=== PATIENT | male | born 1935 | race Caucasian/White ===

== ENCOUNTER → 2017-02-21 | Outpatient (CLI) | payer OTHER ==
[~2017-02-21] MED LIST: ADVAIR 250/501 EA INH; ASPIRIN325 MG; CIPROFLOXACIN500 MG PO; DURAGESIC 25 M25 MCG TD; GLUCOSAMINE500 M1 PO; HYDROCODONE BIT1 T11 PO; IBU800 MG PO; LASIX20 MG; LASIX40 MG PO; MINOCYCLINE HCL50 MG PO; NEURONTIN100 MG PO; PLENDIL10 MG; PRAVACHOL20 MG; SINGULAIR10 MG
== END | disposition home or self-care (01) ==
LOC: CARD 03:09
DX: I08.3 Combined rheumatic disorders of mitral, aortic and tricuspid valves (principal)

== ENCOUNTER 2017-08-16 15:30 | Emergency (ER) | payer OTHER ==
[~2017-08-16] VITALS: Ht 172.7 cm; Wt 93.0 kg
[2017-08-16] MEDS ORDERED: POTASSIUM IV (15:41)
[2017-08-16] MEDS ORDERED: ZOCOR10 MG PO (15:42)
[2017-08-16] MEDS ORDERED: COLACE100 MG PO (15:42)
[2017-08-16] MEDS ORDERED: AUGMENTIN 875875 MG PO (16:20)
== END 2017-08-16 16:52 | disposition home or self-care (01) ==
LOC: ED 15:30
DX: L02.212 Cutaneous abscess of back [any part, except buttock and flank] (principal); Z79.899 Other long term (current) drug therapy

== ENCOUNTER → 2017-08-17 | Outpatient (CLI) | payer OTHER ==
[~2017-08-17] MED LIST changes: +AUGMENTIN 875875 MG PO; +COLACE100 MG PO; +POTASSIUM IV; +ZOCOR10 MG PO
== END | disposition home or self-care (01) ==
LOC: WOUNDCARE 09:17
DX: L02.212 Cutaneous abscess of back [any part, except buttock and flank] (principal); L03.312 Cellulitis of back [any part except buttock and flank]; E78.00 Pure hypercholesterolemia, unspecified; Z87.891 Personal history of nicotine dependence

== ENCOUNTER → 2017-08-22 | Outpatient (CLI) | payer OTHER | END | disposition home or self-care (01) | LOC: WOUNDCARE 04:17 | DX: S31.000D Unspecified open wound of lower back and pelvis without penetration into retroperitoneum, subsequent encounter (principal); L02.212 Cutaneous abscess of back [any part, except buttock and flank]; L03.312 Cellulitis of back [any part except buttock and flank]; E78.00 Pure hypercholesterolemia, unspecified; Z87.891 Personal history of nicotine dependence; X58.XXXD Exposure to other specified factors, subsequent encounter ==

== ENCOUNTER → 2018-11-14 | Outpatient (CLI) | payer OTHER ==
[2018-11-14 16:22] LABS: BASO % 0.6 % (0.0-1.0); EOS # 0.1 10*3/uL (0.0-0.4); MEAN CELL VOLUME 98.5 fl (80.0-94.0); MEAN CORPUSCULAR HGB 32.8 pg (27.0-31.0); MEAN CORPUSCULAR HGB CONC 33.3 g/dl (33.0-37.0); MEAN PLATELET VOLUME 10.6 fl (9.6-12.3); MONO # 0.4 10*3/uL (0.1-1.0); MONO % 6.3 % (3.0-9.0); NEUT # 4.4 10*3/uL (2.3-7.9); NEUT % 63.8 % (47.0-73.0); PLATELET COUNT AUTOMATED 193 10*3/uL (130-400); RED BLOOD COUNT 4.57 10*6/uL (4.50-5.90); RED CELL DISTRI WIDTH 13.2 % (0-14.5)
[2018-11-14 16:47] LABS: ALBUMIN 4.5 gm/dl (3.1-4.5); ALKALINE PHOSPHATASE 93 U/L (45-117); BUN 19 mg/dl (7-24); CHLORIDE 106 mmol/L (98-107); CHOLESTEROL 168 mg/dL (<200); CREATININE 1.15 mg/dL (0.70-1.30); FREE T4 1.08 ng/dl (0.76-1.46); HDL CHOLESTEROL 75 mg/dl (40-60); LDL CHOLESTEROL 77 mg/dL (9-159); POTASSIUM 4.1 mmol/L (3.5-5.1); SGOT/AST 30 IU/L (3-35); SGPT/ALT 29 U/L (12-78); SODIUM 141 mmol/L (136-145); TRIGLYCERIDES 79 mg/dl (<150); VLDL CHOLESTEROL 16 mg/dL (6-40)
[2018-11-14 17:07] LABS: VITAMIN D, 25-HYDROXY 28.8 ng/mL (30-100)
== END | disposition home or self-care (01) ==
LOC: LAB 15:58
PROVIDERS: Internal Medicine
DX: E78.2 Mixed hyperlipidemia (principal); E03.9 Hypothyroidism, unspecified; I10 Essential (primary) hypertension; E55.9 Vitamin D deficiency, unspecified

== ENCOUNTER 2019-03-31 01:04 | Emergency (ER) | payer OTHER ==
[~2019-03-31] VITALS: Ht 172.7 cm; Wt 92.1 kg
[2019-03-31 02:01] LABS: BASO % 0.6 % (0.0-1.0); EOS # 0.1 10*3/uL (0.0-0.4); EOS % 1.3 % (1.0-4.0); HEMATOCRIT 38.9 % (42.0-52.0); HEMOGLOBIN 13.6 g/dl (14.0-18.0); LYMPH # 1.3 10*3/uL (1.3-4.4); LYMPH % 20.4 % (27.0-41.0); MEAN CELL VOLUME 98.2 fl (80.0-94.0); MEAN CORPUSCULAR HGB 34.3 pg (27.0-31.0); MEAN PLATELET VOLUME 10.5 fl (9.6-12.3); MONO # 0.5 10*3/uL (0.1-1.0); MONO % 8.1 % (3.0-9.0); NEUT # 4.3 10*3/uL (2.3-7.9); NEUT % 69.4 % (47.0-73.0); PLATELET COUNT AUTOMATED 177 10*3/uL (130-400); RED BLOOD COUNT 3.96 10*6/uL (4.50-5.90); RED CELL DISTRI WIDTH 13.1 % (0-14.5); WHITE BLOOD COUNT 6.3 10*3/uL (4.8-10.8)
[2019-03-31 02:12] LABS: ACT PARTIAL THROMBO TIME 26.3 SECONDS (20.0-32.1); INTERNATIONAL NORM RATIO 0.9 (2.0-3.5)
[2019-03-31 02:18] LABS: ALBUMIN 3.5 gm/dl (3.1-4.5); ALKALINE PHOSPHATASE 85 U/L (45-117); BUN 17 mg/dl (7-24); CHLORIDE 107 mmol/L (98-107); CPK 278 U/L (39-308); CREATININE 0.97 mg/dL (0.70-1.30); POTASSIUM 3.6 mmol/L (3.5-5.1); SGOT/AST 28 IU/L (3-35); SGPT/ALT 26 U/L (12-78); SODIUM 140 mmol/L (136-145)
[2019-03-31 02:19] LABS: CKMB 2.2 ng/ml (0.5-3.6)
[2019-03-31 02:40] LABS: TROPONIN I < 0.015 ng/ml (<0.045)
[2019-03-31] MEDS ORDERED: ULTRAM50 MG PO (03:27)
== END 2019-03-31 04:37 | disposition left against medical advice (07) ==
LOC: ED 01:04
PROVIDERS: Nurse Practitioner Family
DX: S22.31XA Fracture of one rib, right side, initial encounter for closed fracture (principal); M25.511 Pain in right shoulder; M25.551 Pain in right hip; R26.89 Other abnormalities of gait and mobility; Z79.2 Long term (current) use of antibiotics; Z79.899 Other long term (current) drug therapy; W18.30XA Fall on same level, unspecified, initial encounter; Y93.89 Activity, other specified; Y92.098 Other place in other non-institutional residence as the place of occurrence of the external cause; Y99.8 Other external cause status

== ENCOUNTER 2019-05-18 21:59 | Inpatient (IN) | payer OTHER ==
[~2019-05-18] VITALS: Ht 172.7 cm; Wt 94.0 kg
[~2019-05-18 21:59] MED LIST changes: +ULTRAM50 MG PO
[2019-05-18 22:02] VITALS: BP 141/76
[2019-05-18 22:33] LABS: BASO % 0.6 % (0.0-1.0); EOS # 0.1 10*3/uL (0.0-0.4); EOS % 1.8 % (1.0-4.0); HEMATOCRIT 41.8 % (42.0-52.0); HEMOGLOBIN 14.3 g/dl (14.0-18.0); LYMPH # 2.2 10*3/uL (1.3-4.4); LYMPH % 34.7 % (27.0-41.0); MEAN CORPUSCULAR HGB 33.2 pg (27.0-31.0); MEAN CORPUSCULAR HGB CONC 34.2 g/dl (33.0-37.0); MEAN PLATELET VOLUME 10.3 fl (9.6-12.3); MONO # 0.4 10*3/uL (0.1-1.0); MONO % 6.8 % (3.0-9.0); NEUT # 3.5 10*3/uL (2.3-7.9); NEUT % 55.8 % (47.0-73.0); PLATELET COUNT AUTOMATED 184 10*3/uL (130-400); RED BLOOD COUNT 4.31 10*6/uL (4.50-5.90); RED CELL DISTRI WIDTH 13.2 % (0-14.5); WHITE BLOOD COUNT 6.3 10*3/uL (4.8-10.8)
[2019-05-18 22:47] LABS: INTERNATIONAL NORM RATIO 0.9 (2.0-3.5)
[2019-05-18 22:49] LABS: ALBUMIN 3.9 gm/dl (3.1-4.5); ALKALINE PHOSPHATASE 98 U/L (45-117); BUN 21 mg/dl (7-24); CHLORIDE 108 mmol/L (98-107); CREATININE 1.11 mg/dL (0.70-1.30); LIPASE 175 U/L (73-393); POTASSIUM 4.1 mmol/L (3.5-5.1); SGOT/AST 30 IU/L (3-35); SGPT/ALT 29 U/L (12-78); SODIUM 140 mmol/L (136-145); TOTAL PROTEIN 7.9 gm/dL (6.4-8.2)
--- NOTE | 2019-05-18 22:52 | NUR ---
CRITICAL LACTIC ACID RECEIVED FROM [facility]ILON IN LAB, DR MARR MADE AWARE
[2019-05-18 22:54] LABS: TROPONIN I < 0.015 ng/ml (<0.045)
[2019-05-18 23:43] VITALS: BP 128/80
--- NOTE | 2019-05-18 23:58 | NUR ---
SPOKE TO CARRILLO SHETTY, CARRILLO STATES PTS ROOM IS STILL NEEDS CLEANED AND HE WILL CALL WHEN ROOM IS READY. CHARGE NURSE JAYLYN SHETTY, MADE AWARE
[2019-05-19 01:10] VITALS: BP 116/80
--- NOTE | 2019-05-19 01:10 | NUR ---
A 83, admitted to 4E, under the services of Dr. ZHANNA ACKERMAN,MARY Draper with a diagnosis of FALL, FRACTURE OF LEFT HIP. Chief complaint is FALL. Patient arrived via stretcher from ER. Monitor applied. Initial assessment completed. Vital signs taken and recorded. DR. ZHANNA ACKERMAN,MARY Draper notified of admission to the unit. Orders received. See assessment for past medical history, medications and allergies. Patient and/or family oriented to unit. visitation policy reviewed. Clothing/patient valuable form completed. CARRILLO LÓPEZ
[2019-05-19 03:12] LABS: BILIRUBIN NEGATIVE (NEGATIVE); BLOOD NEGATIVE (NEGATIVE); CLARITY CLEAR (CLEAR); COLOR YELLOW (YELLOW); GLUCOSE NEGATIVE (NEGATIVE); KETONE TRACE (NEGATIVE); LEUKO ESTERASE NEGATIVE (NEGATIVE); NITRITE NEGATIVE (NEGATIVE); PH 5.5 (5.0-9.0); SPECIFIC GRAVITY >= 1.030 (1.005-1.030); UROBILINOGEN 0.2 E.U./dl (0.2-1.0)
[2019-05-19 03:21] LABS: BACTERIA TRACE; RBC 0-2 rbc/hpf (0-2); WBC 0-2 wbc/hpf (0-5)
--- NOTE | 2019-05-19 07:13 | NUR ---
ATTEMPTED TO CONSULT DR. SOLIMAN AT THIS TIME. MESSAGE LEFT WITH [facility] ANSWERING SERVICE. INFORMED THAT THERE WAS NO COVERAGE AND MESSAGE WOULD BE RELAYED TOMORROW.
[2019-05-19 08:00] VITALS: BP 122/50
--- NOTE | 2019-05-19 08:23 | NUR ---
DR. SOLIMAN CONSULT COMPLETE. SEE NEW ORDERS.
--- NOTE | 2019-05-19 08:30 | NUR ---
PT C/O PAIN OF 03/21. NOT TIME FOR ANY PAIN MEDS. NOTIFIED DR CHAO AND RECEIVED NEW ORDERS.
--- NOTE | 2019-05-19 09:02 | NUR ---
C/O PAIN ALL OVER OF 03/21. IV DILAUDID GIVEN AT THIS TIME. WILL CONT TO MONITOR. CALL LIGHT IN REACH.
--- NOTE | 2019-05-19 09:54 | NUR ---
PT STATES IV DILAUDID EFF. WILL CONT TO MONITOR. CALL LIGHT IN REACH.
--- NOTE | 2019-05-19 10:29 | NUR ---
SPOKE TO DR CHAO. NEW ORDER RECEIVED FOR IV ZOFRAN. WILL CONT TO MONITOR. CALL LIGHT IN REACH.
[2019-05-19 12:00] VITALS: BP 154/76
--- NOTE | 2019-05-19 12:35 | NUR ---
C/O PAIN OF 10/10 ALL OVER PER PT. IV DILAUDID GIVEN AT THIS TIME. WILL CONT TO MONITOR. CALL LIGHT IN REACH. NOTIFIED DR CHAO OF C/O LEFT SHOULDER PAIN. NEW ORDERS RECEIVED.
--- NOTE | 2019-05-19 13:35 | NUR ---
STATES IV DILAUDID EFF. WILL CONT TO MONITOR . CALL LIGHT IN REACH.
--- NOTE | 2019-05-19 15:30 | NUR ---
C/O PAIN 10/[address] CHAO INCREASE DILAUDID TO 2MG IV Q4HRS PRN PAIN.
--- NOTE | 2019-05-19 15:48 | NUR ---
C/O PAIN 10/10 TO LEFT HIP AND BACK. IV DILAUDID GIVEN AT THIS TIME.
[2019-05-19 16:00] VITALS: BP 128/62
--- NOTE | 2019-05-19 16:50 | NUR ---
DR CHAO NOTIFIED PT CONT TO C/O PAIN OF 01/19 TO LEFT HIP.
[2019-05-19 20:00] VITALS: BP 139/75
--- NOTE | 2019-05-19 20:30 | NUR ---
NEW IV SITE INITIATED IN LAC IV TO L HAND LEAKING. L HAND IV DCed AND DSD APPLIED. IV DILAUDID ADMINISTERED PER PRN ORDER FOR C/O PAIN IN L HIP RATED 10/10. PT YELLING OUT IN PAIN. RN OFFERED TO REPOSITION PT FOR COMFORT, BUT PT REFUSING TO MOVE STATING "IT HURTS TOO BAD." WILL MONITOR EFFECTIVENESS OF MEDICATION. CALL LIGHT IN REACH. BED ALARM INTACT.
[2019-05-20] VITALS (9 sets, daily range): BP systolic 95–160; BP diastolic 60–96
--- NOTE | 2019-05-20 00:08 | NUR ---
SCHEDULED IV TORADOL ADMINISTERED PER ORDER. WILL MONITOR EFFECTIVENESS. PT IS SLEEPING HEAVILY, BUT RESPONDS TO TACTILE STIMULI. PT DOES SEEM TO BE MORE CONFUSED AT THIS TIME, BUT STILL ANSWERS APPROPRIATELY TO SOME QUESTIONS. PT IS ORIENTED TO SELF ONLY, DISORIENTED TO TIME & PLACE. WILL MONITOR. CALL LIGHT IN REACH. BED RAILS UP X2. BED ALARM INTACT.
--- NOTE | 2019-05-20 01:36 | NUR ---
PATIENT DEMONSTRATING CHANGE IN MENTAL STATUS. PT IS VERY AGITATED, PULLING AT BELTRAN CATHETER & TURNING SELF FROM SIDE TO SIDE IN BED WHILE SAYING "I CAN'T MOVE THIS LEG." RN TRIED TO REORIENT PATIENT & EXPLAIN THAT HE HAD A FALL & THAT HE IS IN THE HOSPITAL. PT VERBALIZES UNDERSTANDING, BUT THEN YELLS "WHY DIDN'T YOU JUST LEAVE ME IN THE HOSPITAL THEN." RN AGAIN EXPLAINED THAT HE IS IN THE HOSPITAL. VS TAKEN AT THIS TIME. BP ELEVATED AT 160/94, BUT READING PROBABLY INACCURATE PT WOULD NOT STOP MOVING FOR RN TO TAKE BP. HR 110S PER CM. TEMP 98.4. POX 91-92% ON ROOM AIR. O2 APPLIED VIA 2L NC. NOTIFIED OF PT'S CHANGE IN STATUS. DISCUSSED 2MG IV DILAUDID GIVEN EARLIER THIS EVENING. STATES CHANGE IS MOST LIKELY DUE TO MEDICATION & INSTRUCTED TO DECREASE PRN DOSE TO 1 MG.
--- NOTE | 2019-05-20 03:02 | NUR ---
NEW IV SITE INITIATED IN RAC PER POLICY. OLD IV SITE TO LAC WENT BAD. IV DILAUDID ADMINISTERED PER ORDER FOR C/O PAIN RATED 10/10.
--- NOTE | 2019-05-20 03:03 | NUR ---
NEW IV SITE INITIATED IN RAC PER POLICY. OLD IV SITE TO LAC OCCLUDED. SITE REMOVED AND DSD APPLIED. IV DILAUDID ADMINISTERED PER ORDER FOR C/O PAIN IN L HIP RATED 10/10. WILL MONITOR EFFECTIVENESS. CALL LIGHT IN REACH. BED ALARM INTACT.
--- NOTE | 2019-05-20 05:37 | NUR ---
PT SOUNDS VERY MOIST AT THIS TIME. RALES/RHONCHI HEARD UPON AUSCULTATION & AUDIBLE RATTLING HEARD IN UPPER AIRWAY. PT ABLE TO CLEAR AT TIMES, BUT COUGH IS MOSTLY INEFFECTIVE. NOTIFIED. INSTRUCTED TO GET CHEST XRAY AND GIVE ONE TIME DOSE OF IV LASIX 80 MG NOW.
[2019-05-20 05:58] LABS: BASO % 0.3 % (0.0-1.0); EOS # 0.1 10*3/uL (0.0-0.4); HEMATOCRIT 42.3 % (42.0-52.0); HEMOGLOBIN 14.1 g/dl (14.0-18.0); LYMPH % 8.3 % (27.0-41.0); MEAN CORPUSCULAR HGB 33.3 pg (27.0-31.0); MEAN CORPUSCULAR HGB CONC 33.3 g/dl (33.0-37.0); MEAN PLATELET VOLUME 10.7 fl (9.6-12.3); MONO # 0.8 10*3/uL (0.1-1.0); MONO % 6.6 % (3.0-9.0); NEUT # 9.8 10*3/uL (2.3-7.9); NEUT % 83.4 % (47.0-73.0); PLATELET COUNT AUTOMATED 170 10*3/uL (130-400); RED BLOOD COUNT 4.23 10*6/uL (4.50-5.90); RED CELL DISTRI WIDTH 13.5 % (0-14.5); WHITE BLOOD COUNT 11.8 10*3/uL (4.8-10.8)
[2019-05-20 06:14] LABS: BUN 17 mg/dl (7-24); CHLORIDE 107 mmol/L (98-107); CREATININE 0.91 mg/dL (0.70-1.30); SODIUM 139 mmol/L (136-145)
[2019-05-20 07:05] LABS: ABG BASE EXCESS 1.5 mmol/L (-2.0-2.0); ARTERIAL BLOOD GAS PH 7.406 (7.35-7.45)
--- NOTE | 2019-05-20 07:31 | NUR ---
PT TRANSFERED TO ICCU 2 AT THIS TIME. RESPIRATORY DISTRESS NOTED. MOIST RESPIRATIONS WITH RHONCHI/WHEEZE. POX 92% ON 3L NC. SINUS TACHY AT 100-110. TEMP 101.2. 600CC OF URINE IN BELTRAN SINCE IV LASIX GIVEN. AWAITING CTA RESULTS.
--- NOTE | 2019-05-20 07:37 | NUR ---
MESSAGE LEFT ON PT'S SON ANDERSON PHONE AT [phone] TO MAKE HIM AWARE OF CHANGE IN PT'S CONDITION.
--- NOTE | 2019-05-20 07:51 | NUR ---
0615 IV LASIX ADMINISTERED SLOWLY PER ONE TIME ORDER. PT APPEARED TO BE MORE SOB. POX CHECKED- 85%-89% ON ROOM AIR. O2 APPLIED VIA 2L NC. POX 90-91% ON 2L. O2 INCREASED TO 3L. POX 94-96% ON 3L. O2 TURNED BACK DOWN TO 2L DUE TO HX OF COPD. POX 92-94% ON 2L. 0630PO TYLENOL ADMINISTERED FOR ORAL TEMP 100.8. IV DILAUDID ADMINISTERED PER PRN ORDER FOR PT C/O EXCRUCIATING PAIN IN L HIP RATED 10/10. PT NOTED TO BE MORE SHORT OF BREATH & DIAPHORETIC. POX 88% ON 2L. O2 INCREASED TO 3L. POX 93%. [id number] CALLED AND UPDATED ON STATUS. AWARE 80 MG OF LASIX HAS BEEN ADMINISTERED, BUT PT APPEARS TO BE IN MORE DISTRESS. NEW ORDERS RECEIVED FOR STAT CTA CHEST, STAT AZIZ CONSULT, STAT ABGs, AND TRANSFER TO ICU. [id number] NOTIFIED OF CONSULT. AWARE NO RESULTS HAVE COME BACK AT THIS TIME. INSTRUCTED TO CALL WHEN RESULTS AVAILABLE. 0705PT TAKEN DOWN TO CT BY 2 RNs VIA BED. 0718PT RETURNED TO FLOOR AND TRANSFERRED TO ICU BED 2. REPORT GIVEN TO DIOGENES GA. AWARE NEEDS TO BE CALLED REGARDING TEST/LAB RESULTS. ALSO AWARE THAT SHIFT DIRECTOR CALLED ONE FAMILY MEMBER (JCARLOS LONGORIA) REGARDING TRANSFER TO ICU, BUT NEXT OF KIN LISTED IN EMERGENCY CONTACTS WILL STILL NEED TO BE CONTACTED.
--- NOTE | 2019-05-20 08:23 | NUR ---
PT CONTINUES TO HAVE VERY MOIST COUGH AND RESPIRATIONS. LARGE AMOUNT OF CLEAR YELLOW URINE IN BELTRAN. I TRIED TO DEEP SUCTION PT BUT PT WAS UNABLE TO TOLERATE AT THIS TIME. POX 95% ON 3L NC. TACHYCARDIA AT 112. BP 139/72.
--- NOTE | 2019-05-20 08:40 | NUR ---
DR MAIER MADE AWARE OF CTA REPORT. NEW ORDERS RECIEVED FOR ANTIBIOTICS AND LAB WORK.
--- NOTE | 2019-05-20 08:49 | NUR ---
PT MEDICATED WITH ATIVAN 1MG FOR ANXIETY.
--- NOTE | 2019-05-20 09:00 | NUR ---
Technical Delivery Manager in to talk to patient. Patient states lives at home alone with his daughter checking in on him. There are 0 steps in the home. Physician: Dr. Awais Mercer [facility]acy: [facility] Home health services: none Patient's level of ADLs: MODERATE ASSIST Patient has working utilities: yes DME: walker, cane, electric chair Follow-up physician's appointment after d/c: he prefers to make his own follow up appt after discharge Does patient want to access PORTAL?: no Discharge plan discussed with patient. He lives at home alone with his daughter checking in on him. He needs minimal assistance with his ADLs and ambulates with either a walker or a cane. Discussed short term SNF and he is unsure of his discharge needs at this time. He began dozing off. CT bilateral infiltrates, most respirations, lasix. IVANNA CROCKETT
--- NOTE | 2019-05-20 09:33 | NUR ---
PT RESTING AT THIS TIME SINCE RECEIVEING ATIVAN. HEART RATE 99. BP 114/62.
--- NOTE | 2019-05-20 10:38 | NUR ---
PT MEDICATED WITH DILAUDID 1MG IV FOR C/O SEVERE PAIN "11 OUT OF 10" PER PT ON PAIN SCALE.
--- NOTE | 2019-05-20 14:13 | NUR ---
DR JON WHO IS WORKING WITH DR SOLIMAN TODAY WAS NOTIFIED THAT DR MAIER WOULD LIKE THEM TO MAKE RECOMMENDATIONS OF WHAT TYPE OF ANTICOAGULATION PT SHOULD BE ON.
--- NOTE | 2019-05-20 14:35 | NUR ---
PT RESTING IN BED AT THIS TIME. MUCH LESS RESTLESS. DENIES NEED FOR ANY PAIN MED AT THIS TIME. ON PAIN SCALE PT STATES HIS PAIN IS "O" ON PAIN SCALE. HEART RATE 88 NSR. POX 97% ON 3L NC. BP 95/75. SON AND DAUGHTER AT BEDSIDE.
--- NOTE | 2019-05-20 15:30 | NUR ---
Patient requested milk of mag due to not having a bm in 3 days. Patient denies any pain in his hip at this time. Family at bedside. Patient left with call light in reach.
--- NOTE | 2019-05-20 15:49 | NUR ---
PHYSICAL THERAPY Screen received pt admitted with L hip fx awaiting to be seen by Ortho and medical appropriateness. Please consult PT as appropriate per Medical and Ortho MD assessment and intervention, thank you. Audra Menon PT
--- NOTE | 2019-05-20 16:11 | NUR ---
Nursing screen received and chart reviewed. Patient currently in ICCU after a fall and left hip fracture. Recommend OT after medical stabilization and orthopedic consult. Thank you. Mirella Urbano OTR/L
--- NOTE | 2019-05-20 20:57 | NUR ---
PATIENT GIVEN DILAUDID PER PRN ORDER FOR LEFT HIP PAIN 02/19
[2019-05-21] VITALS: BP 139/91
--- NOTE | 2019-05-21 01:54 | NUR ---
PATIENT GIVEN DILAUDID FOR LEFT HIP PAIN.
--- NOTE | 2019-05-21 03:56 | NUR ---
PATIENT LYING IN BED WITH EYES CLOSED PATIENT SEEMS TO BE RESTING AT THIS TIME.
[2019-05-21 04:00] VITALS: BP 146/100
--- NOTE | 2019-05-21 04:41 | NUR ---
PATIENT HAS BECOME BECOME VERY CONFUSED THROUGHOUT THE NIGHT PATIENT DID NOT KNOW WHERE HE WAS THIS MORNING OR THAT HE WAS EVEN IN THE HOSPITAL. PATIENTWAS REORIENTED AND EXPLAINED WHY HE WAS HERE AND THAT HE COULD NOT GET OUT OFBED BECUASE HIS HIP WAS BROKEN FROM A FALL AT HOME. PATIENT HAS BEEN IN PAIN ALL NIGHT PAIN MEDICATION DOES NOT LAST LONG ENOUGH PER THE PATIENT
[2019-05-21 05:38] LABS: BUN 18 mg/dl (7-24); CHLORIDE 106 mmol/L (98-107); POTASSIUM 3.3 mmol/L (3.5-5.1); SODIUM 140 mmol/L (136-145)
--- NOTE | 2019-05-21 05:46 | NUR ---
PATIENT GIVEN DILAUDID FOR LEFT HIP PAIN D/T FRACTURE.
[2019-05-21 06:10] LABS: BASO % 0.2 % (0.0-1.0); EOS % 0.4 % (1.0-4.0); HEMATOCRIT 36.8 % (42.0-52.0); HEMOGLOBIN 12.7 g/dl (14.0-18.0); LYMPH % 12.3 % (27.0-41.0); MEAN CELL VOLUME 97.6 fl (80.0-94.0); MEAN CORPUSCULAR HGB 33.7 pg (27.0-31.0); MEAN CORPUSCULAR HGB CONC 34.5 g/dl (33.0-37.0); MEAN PLATELET VOLUME 10.9 fl (9.6-12.3); MONO # 0.6 10*3/uL (0.1-1.0); MONO % 7.7 % (3.0-9.0); NEUT # 6.5 10*3/uL (2.3-7.9); NEUT % 79.2 % (47.0-73.0); PLATELET COUNT AUTOMATED 162 10*3/uL (130-400); RED BLOOD COUNT 3.77 10*6/uL (4.50-5.90); RED CELL DISTRI WIDTH 13.2 % (0-14.5); WHITE BLOOD COUNT 8.3 10*3/uL (4.8-10.8)
[2019-05-21 08:00] VITALS: BP 139/69
--- NOTE | 2019-05-21 08:33 | NUR ---
TUBI FELLMONGERY WORKER AND SCD'S INTACT BILATERALLY.
--- NOTE | 2019-05-21 09:42 | NUR ---
PT MEDICATED WITH DILAUDID FOR C/O LEFT HIP AREA PAIN.
--- NOTE | 2019-05-21 10:13 | NUR ---
Spoke to Dr. Mercer regarding ortho not available until an undetermined time. Spoke to Dr. Canela regarding when patient would be ready for surgery as he is currently being treated for pneumonia. Dr. Canela stated patient would be ready for surgery on . Spoke to Joann in Dr. Camilo's office regarding when Dr. Camilo would be available for surgery. Awaiting return call and notified Dr. Mercer.
--- NOTE | 2019-05-21 10:22 | NUR ---
PT FEELING ANXIOUS STATING "I DONT THINK IM GOING TO MAKE IT" AND CRYING ABOUT HIS DECREASED . DR CAHO NOTIFIED AND ORDER FOR ATIVAN RECIEVED.
--- NOTE | 2019-05-21 10:28 | NUR ---
PT STATED DILAUDID WAS EFFECTIVE IN EASING HIS HIP PAIN.
--- NOTE | 2019-05-21 11:27 | NUR ---
PT NO LONGER TEARY. RESTING IN BED WATCHING TV SINCE ATIVAN GIVEN.
--- NOTE | 2019-05-21 11:30 | NUR ---
Spoke to Joann at Dr. Camilo's office. Dr. Camilo will be out for the rest of the week with no ortho coverage. Dr. Mercer and snack steward notified.
[2019-05-21 12:00] VITALS: BP 137/74
--- NOTE | 2019-05-21 14:17 | NUR ---
PT MEDICATED WITH DILAUDID 1MG IV FOR C/O PAIN TO LEFT HIP AREA.
--- NOTE | 2019-05-21 14:58 | NUR ---
PT STATED DILAUDID WAS EFFECTIVE IN EASING HIS HIP PAIN. RESTING QUIETLY IN BED NOW.
[2019-05-21 16:00] VITALS: BP 148/70
--- NOTE | 2019-05-21 17:09 | NUR ---
DR CHAO IN TO SEE PT AND SPOKE WITH PT AND HIS DAUGHTER WHO WAS AT BEDSIDE.
[2019-05-21 20:00] VITALS: BP 147/77
[2019-05-22] VITALS: BP 166/71
--- NOTE | 2019-05-22 03:47 | NUR ---
PATIENT GIVEN DILAUDID FOR LEFT HIP PAIN D/T LEFT HIP FRACTURE.
[2019-05-22 04:00] VITALS: BP 167/86
--- NOTE | 2019-05-22 04:19 | NUR ---
PATIENT HAS BECOME MORE CONFUSED THROUGH OUT THE NIGHT. TRYING TO CRAWL OUT OF BED ASKING IF I WORK IN THE [employer]. THEN AFTER GETTING HIM LYING BACK IN THE BED THE CORRECT WAY. HE SAYS HE THINKS HE IS AT HIS HOUSE. AND THAT HE IS DYING.I REORIENTED HIM ASKED WHY HE THOUGHT HE WAS DYING HE SAID BECAUSE OF THE PAIN IN HIS HIP PAIN MEDICATION WAS THEN GIVEN AND PATIENT SEEMS TO BE A BIT MORE COMFORTABLE SINCE THEN.
[2019-05-22 04:40] LABS: BASO % 0.3 % (0.0-1.0); EOS # 0.1 10*3/uL (0.0-0.4); EOS % 1.5 % (1.0-4.0); HEMATOCRIT 37.2 % (42.0-52.0); HEMOGLOBIN 12.7 g/dl (14.0-18.0); LYMPH # 0.9 10*3/uL (1.3-4.4); LYMPH % 11.5 % (27.0-41.0); MEAN CELL VOLUME 97.9 fl (80.0-94.0); MEAN CORPUSCULAR HGB 33.4 pg (27.0-31.0); MEAN CORPUSCULAR HGB CONC 34.1 g/dl (33.0-37.0); MEAN PLATELET VOLUME 10.7 fl (9.6-12.3); MONO # 0.6 10*3/uL (0.1-1.0); MONO % 8.3 % (3.0-9.0); NEUT # 5.8 10*3/uL (2.3-7.9); NEUT % 78.1 % (47.0-73.0); PLATELET COUNT AUTOMATED 175 10*3/uL (130-400); RED CELL DISTRI WIDTH 13.3 % (0-14.5); WHITE BLOOD COUNT 7.4 10*3/uL (4.8-10.8)
[2019-05-22 05:36] LABS: BUN 16 mg/dl (7-24); CHLORIDE 109 mmol/L (98-107); CREATININE 0.69 mg/dL (0.70-1.30); POTASSIUM 3.6 mmol/L (3.5-5.1); SODIUM 144 mmol/L (136-145)
--- NOTE | 2019-05-22 06:21 | NUR ---
PATIENT HAS BEEN MOVING ALL OVER THE BED ALL NIGHT LONG. PATIENT IS VERY CONFUSED THIS MORNING YELLING FOR PEOPLE IN THE WINDOW AND STATING THAT HE HAS TO URINATE WHICH I KEEP REMINDING HIM THAT HE HAS A CATH. PATIENT IS VERY ANXIOUS AND CONFUSED AND DOES NOT KNOW WHERE HE IS THIS MORNING.
[2019-05-22 08:00] VITALS: BP 146/82
--- NOTE | 2019-05-22 08:45 | NUR ---
PT C/O PAIN TO LEFT HIP THAT RATES 10/10 ON PAIN SCALE. MEDICATED PT PER PRN ORDER WITH IV DILAUDID.
--- NOTE | 2019-05-22 09:15 | NUR ---
PT RESTING MUCH EASIER. PT STATES NOT MUCH RELIEF WITH DILAUDID THOUGH.
--- NOTE | 2019-05-22 09:45 | NUR ---
DR BARAJAS IN TO SEE PT. HE STATED HE WAS GOING TO TRANSFER PT TO [facility] TODAY.
[2019-05-22] MEDS ORDERED: VENTOLIN 02.5 MG/3 M NEB (09:51)
[2019-05-22] MEDS ORDERED: ENOXAPARIN40 MG/0.2 SC (09:51)
--- NOTE | 2019-05-22 10:40 | NUR ---
PT C/O CONSTIPATION. UPDATED DR CHAO. ORDER RECEIVED FOR FLEET ENEMA.
--- NOTE | 2019-05-22 11:15 | NUR ---
FLEET ENEMA GIVEN PER ORDER. AWAITING RESULTS.
--- NOTE | 2019-05-22 11:52 | NUR ---
SMALL BROWN BM RESULTED FROM EARLIER FLEET ENEMA. PT STATES HE FEELS "MUCH BETTER."
--- NOTE | 2019-05-22 11:53 | NUR ---
CALLED PT'S SON AND UPDATED HIM ON PT'S POSSIBLE TRANSFER TO [facility] TODAY. CASE MANAGEMENT NOTIFIED OF NEED FOR PRE AUTHORIZATION ACCORDING TO [facility].
[2019-05-22 12:00] VITALS: BP 126/81
--- NOTE | 2019-05-22 12:00 | NUR ---
Spoke to Shey at [facility] regarding prior authorization to transfer patient to [facility]. Ref # [id number]. Fax clinical to [phone]. Notified ICCU nurse and steward/stewardess economy class of ref #. Spoke to Sidra at [facility] Med Call and notified of ref #. Family notified.
--- NOTE | 2019-05-22 12:04 | NUR ---
PT'S FAMILY MEMBER IN TO VISIT WITH HIM. UPDATED HER ON PT'S CONDITION AND PLAN OF CARE. PT'S LUNCH ORDERED FOR HIM.
--- NOTE | 2019-05-22 12:07 | NUR ---
Spoke to daughter at bedside. Informed of transfer to [facility]. Answered all questions to the best of my knowledge.
--- NOTE | 2019-05-22 14:20 | NUR ---
NOTIFIED OF PATIENT PAIN RAITING AT A 10, PT RESTLESS, AND UNCOMFORTABLE, OK TO GIVEN 1MG DILAUDID EARLY
--- NOTE | 2019-05-22 15:41 | NUR ---
PT REPORT GIVEN TO RECEIVING NURSE AT [facility].
--- NOTE | 2019-05-22 15:50 | NUR ---
PT TO [facility].
== END 2019-05-22 15:50 | disposition short-term general hospital (02) | DRG 535 ==
LOC: ED 21:59 → EDHOLD 23:43 → ICCU 23:43 → 4E 23:53 → ICCU 05-20 07:01
PROVIDERS: Emergency Medicine Emergency Medical Services; ADMIT Internal Medicine
DX: S72.002A Fracture of unspecified part of neck of left femur, initial encounter for closed fracture (principal); J96.01 Acute respiratory failure with hypoxia; J18.9 Pneumonia, unspecified organism; J45.41 Moderate persistent asthma with (acute) exacerbation; E78.2 Mixed hyperlipidemia; Z96.1 Presence of intraocular lens; R73.9 Hyperglycemia, unspecified; K59.09 Other constipation; M25.512 Pain in left shoulder; R29.6 Repeated falls; M19.011 Primary osteoarthritis, right shoulder; E78.00 Pure hypercholesterolemia, unspecified; I10 Essential (primary) hypertension; E66.9 Obesity, unspecified; G62.9 Polyneuropathy, unspecified; W10.9XXA Fall (on) (from) unspecified stairs and steps, initial encounter; Y93.89 Activity, other specified; Y99.8 Other external cause status; Y92.098 Other place in other non-institutional residence as the place of occurrence of the external cause; Z91.81 History of falling; Z87.01 Personal history of pneumonia (recurrent); Z98.42 Cataract extraction status, left eye; Z98.41 Cataract extraction status, right eye; Z68.31 Body mass index [BMI] 31.0-31.9, adult

== ENCOUNTER 2019-07-14 00:10 | Inpatient (IN) | payer OTHER ==
[~2019-07-14] VITALS: Ht 172.7 cm; Wt 82.6 kg
[~2019-07-14 00:10] MED LIST changes: +ENOXAPARIN40 MG/0.2 SC; +VENTOLIN 02.5 MG/3 M NEB
[2019-07-14 00:14] VITALS: BP 124/61
[2019-07-14 04:06] VITALS: BP 128/62
[2019-07-14 04:30] VITALS: BP 152/63
[2019-07-14 08:00] VITALS: BP 125/52
[2019-07-14 12:00] VITALS: BP 154/67
[2019-07-14 16:00] VITALS: BP 136/70; BP 136/710
[2019-07-14 20:01] LABS: BILIRUBIN NEGATIVE (NEGATIVE); CLARITY CLEAR (CLEAR); COLOR YELLOW (YELLOW); GLUCOSE NEGATIVE (NEGATIVE); KETONE 1+ (NEGATIVE)
[2019-07-14 20:02] LABS: BLOOD NEGATIVE (NEGATIVE); LEUKO ESTERASE NEGATIVE (NEGATIVE); NITRITE NEGATIVE (NEGATIVE); SPECIFIC GRAVITY 1.005 (1.005-1.030); UROBILINOGEN 0.2 E.U./dl (0.2-1.0)
[2019-07-14 20:17] LABS: MUCOUS 1+
[2019-07-15] VITALS: BP 152/78
[2019-07-15 08:00] VITALS: BP 128/60
[2019-07-15 11:47] VITALS: BP 136/66
[2019-07-15 16:00] VITALS: BP 117/84
[2019-07-16] VITALS: BP 141/68
[2019-07-16 08:00] VITALS: BP 114/72
[2019-07-16 16:00] VITALS: BP 118/68
[2019-07-16 20:00] VITALS: BP 102/81
[2019-07-17] VITALS: BP 142/63
[2019-07-17 08:00] VITALS: BP 143/71
[2019-07-17 16:00] VITALS: BP 146/57
[2019-07-17 20:00] VITALS: BP 146/75
[2019-07-18] VITALS (7 sets, daily range): BP systolic 128–172; BP diastolic 66–75
[2019-07-18 08:10] LABS: BASO % 0.1 % (0.0-1.0); EOS % 0.3 % (1.0-4.0); HEMATOCRIT 34.1 % (42.0-52.0); HEMOGLOBIN 11.2 g/dl (14.0-18.0); LYMPH # 1.9 10*3/uL (1.3-4.4); LYMPH % 26.5 % (27.0-41.0); MEAN CELL VOLUME 95.5 fl (80.0-94.0); MEAN CORPUSCULAR HGB 31.4 pg (27.0-31.0); MEAN CORPUSCULAR HGB CONC 32.8 g/dl (33.0-37.0); MEAN PLATELET VOLUME 9.7 fl (9.6-12.3); MONO # 0.6 10*3/uL (0.1-1.0); MONO % 8.7 % (3.0-9.0); NEUT # 4.5 10*3/uL (2.3-7.9); PLATELET COUNT AUTOMATED 259 10*3/uL (130-400); RED BLOOD COUNT 3.57 10*6/uL (4.50-5.90); RED CELL DISTRI WIDTH 12.9 % (0-14.5); WHITE BLOOD COUNT 7.1 10*3/uL (4.8-10.8)
[2019-07-18 08:39] LABS: CREATININE 0.78 mg/dL (0.70-1.30)
[2019-07-19] VITALS: BP 132/76
[2019-07-19 07:29] LABS: BASO % 0.1 % (0.0-1.0); HEMATOCRIT 34.4 % (42.0-52.0); HEMOGLOBIN 11.5 g/dl (14.0-18.0); LYMPH # 1.6 10*3/uL (1.3-4.4); MEAN CELL VOLUME 94.5 fl (80.0-94.0); MEAN CORPUSCULAR HGB 31.6 pg (27.0-31.0); MEAN CORPUSCULAR HGB CONC 33.4 g/dl (33.0-37.0); MEAN PLATELET VOLUME 10.1 fl (9.6-12.3); MONO # 0.6 10*3/uL (0.1-1.0); MONO % 5.7 % (3.0-9.0); NEUT # 7.6 10*3/uL (2.3-7.9); NEUT % 77.9 % (47.0-73.0); PLATELET COUNT AUTOMATED 312 10*3/uL (130-400); RED BLOOD COUNT 3.64 10*6/uL (4.50-5.90); RED CELL DISTRI WIDTH 12.8 % (0-14.5); WHITE BLOOD COUNT 9.8 10*3/uL (4.8-10.8)
[2019-07-19 07:50] LABS: ALBUMIN 3.1 gm/dl (3.1-4.5); BUN 25 mg/dl (7-24); CHLORIDE 109 mmol/L (98-107); POTASSIUM 3.4 mmol/L (3.5-5.1); SODIUM 142 mmol/L (136-145)
[2019-07-19 07:54] LABS: ALKALINE PHOSPHATASE 118 U/L (45-117); CREATININE 0.72 mg/dL (0.70-1.30); SGOT/AST 96 IU/L (3-35); SGPT/ALT 153 U/L (12-78); TOTAL PROTEIN 7.3 gm/dL (6.4-8.2)
[2019-07-19 08:00] VITALS: BP 168/74
[2019-07-19] MEDS ORDERED: Percocet 325 MG1 TAB PO (12:01)
[2019-07-19] MEDS ORDERED: PREDNISONE20 M1 PO (12:01)
[2019-07-19] MEDS ORDERED: VOLTAREN100 GM T (12:01)
[2019-07-19] MEDS ORDERED: METHOCARBAMOL750 M1 PO (12:01)
[2019-07-19] MEDS ORDERED: CEFUROXIME AXE250 MG PO (12:01)
[2019-07-19] MEDS ORDERED: LASIX40 MG PO (12:01)
[2019-07-19] MEDS ORDERED: Lidoderm 5% Patch T (12:01)
[2019-07-19] MEDS ORDERED: CELECOXIB200 M1 PO (12:01)
== END 2019-07-19 15:15 | disposition other institution (70) | DRG 517 ==
LOC: ED 00:10 → 5E 03:28 → EDHOLD 03:28 → 5E 03:44
PROVIDERS: ADMIT Internal Medicine
PROC: 03BS0ZX Excision of Right Temporal Artery, Open Approach, Diagnostic (ICD-10-PCS; principal; 2019-07-18)
DX: S32.019A Unspecified fracture of first lumbar vertebra, initial encounter for closed fracture (principal); S32.029A Unspecified fracture of second lumbar vertebra, initial encounter for closed fracture; S32.039A Unspecified fracture of third lumbar vertebra, initial encounter for closed fracture; S32.049A Unspecified fracture of fourth lumbar vertebra, initial encounter for closed fracture; E87.6 Hypokalemia; J44.9 Chronic obstructive pulmonary disease, unspecified; E78.2 Mixed hyperlipidemia; I10 Essential (primary) hypertension; L02.222 Furuncle of back [any part, except buttock and flank]; R62.7 Adult failure to thrive; H57.02 Anisocoria; M25.561 Pain in right knee; M35.3 Polymyalgia rheumatica; K76.89 Other specified diseases of liver; Y93.89 Activity, other specified; Y99.8 Other external cause status; Y92.009 Unspecified place in unspecified non-institutional (private) residence as the place of occurrence of the external cause; Z68.27 Body mass index [BMI] 27.0-27.9, adult; Z79.899 Other long term (current) drug therapy

== ENCOUNTER 2019-08-26 21:27 | Emergency (ER) | payer OTHER ==
[~2019-08-26] VITALS: Ht 175.2 cm; Wt 72.6 kg
[~2019-08-26 21:27] MED LIST changes: +CEFUROXIME AXE250 MG PO; +CELECOXIB200 M1 PO; +Lidoderm 5% Patch T; +METHOCARBAMOL750 M1 PO; +PREDNISONE20 M1 PO; +Percocet 325 MG1 TAB PO; +VOLTAREN100 GM T
== END 2019-08-26 23:55 | disposition home or self-care (01) ==
LOC: ED 21:27
DX: S16.1XXA Strain of muscle, fascia and tendon at neck level, initial encounter (principal); S70.02XA Contusion of left hip, initial encounter; I10 Essential (primary) hypertension; E78.5 Hyperlipidemia, unspecified; J44.9 Chronic obstructive pulmonary disease, unspecified; E78.00 Pure hypercholesterolemia, unspecified; Z79.899 Other long term (current) drug therapy; W19.XXXA Unspecified fall, initial encounter; Y93.89 Activity, other specified; Y92.098 Other place in other non-institutional residence as the place of occurrence of the external cause; Y99.8 Other external cause status

== ENCOUNTER 2019-11-03 02:05 | Emergency (ER) | payer OTHER ==
[~2019-11-03] VITALS: Ht 172.7 cm; Wt 81.6 kg
[2019-11-03] MEDS ORDERED: BACITRAYCIN PLU28 GM T (04:32)
== END 2019-11-03 04:59 | disposition other institution (70) ==
LOC: ED 02:05
DX: S00.03XA Contusion of scalp, initial encounter (principal); J44.9 Chronic obstructive pulmonary disease, unspecified; I10 Essential (primary) hypertension; E78.00 Pure hypercholesterolemia, unspecified; F03.90 Unspecified dementia, unspecified severity, without behavioral disturbance, psychotic disturbance, mood disturbance, and anxiety; Z95.0 Presence of cardiac pacemaker; Z79.899 Other long term (current) drug therapy; Z79.2 Long term (current) use of antibiotics; W05.0XXA Fall from non-moving wheelchair, initial encounter; Y93.89 Activity, other specified; Y92.128 Other place in nursing home as the place of occurrence of the external cause; Y99.8 Other external cause status

== ENCOUNTER 2020-05-13 11:24 | Inpatient (IN) | payer OTHER ==
[~2020-05-13] VITALS: Ht 172.7 cm; Wt 82.2 kg
[2020-05-13] VITALS (8 sets, daily range): BP systolic 123–160; BP diastolic 60–87
[~2020-05-13 11:24] MED LIST changes: +BACITRAYCIN PLU28 GM T
--- NOTE | 2020-05-13 12:25 | NUR ---
RN IN ROOM TO ATTEMPT TO ESTABLISH IV.
--- NOTE | 2020-05-13 13:01 | NUR ---
PATIENT TAKEN TO XRAY VIA BED.
--- NOTE | 2020-05-13 13:15 | NUR ---
PATIENT HAS RETURNED FROM XRAY. REPEAT VITAL SIGNS WILL BE OBTAINED.
--- NOTE | 2020-05-13 13:26 | NUR ---
PATIENT RESTING AT THIS TIME. PROVIDED A WARM BLANKET AND TELEVISION. STATES THAT HE HAS HAD SOME RELIEF OF PAIN. CALL LIGHT IN REACH. WILL CONTINUE TO MONITOR PT. NS INFUSING.
--- NOTE | 2020-05-13 13:50 | NUR ---
PATIENT ASSISTED ONTO THE BED REYES.
--- NOTE | 2020-05-13 13:59 | NUR ---
PATIENT ASSISTED OFF OF THE BED REYES. REPOSITIONED. CALL LIGHT IN REACH. LIGHTS DIMMED. WILL CONTINUE TO MONITOR PT.
--- NOTE | 2020-05-13 14:30 | NUR ---
PATIENT RESTING AT THIS TIME. CALL LIGHT IN REACH. WILL CONTINUE TO MONITOR PT. PT WATCHING TELEVISION. LIGHTS DIMMED.
--- NOTE | 2020-05-13 15:50 | NUR ---
PATIENT HAS BEEN TAKEN TO CT VIA BED.
--- NOTE | 2020-05-13 15:55 | NUR ---
PATIENT HAS RETURNED FROM CT.
--- NOTE | 2020-05-13 16:09 | NUR ---
THE PATIENTS DAUGHTER CONTACTED THE ED REQUESTING INFORMATION ON HER FATHER. THE PATIENTS DAUGHTERS NAME IS ISAIAH. I PLACED THE PATIENTS DAUGHTER ON HOLD AND WENT TO SPEAK WITH THE PATIENT AND HE VERBALIZES CONSENT THAT I AM ABLE TO GIVE HIS DAUGHTER AN UPDATE. DAUGHTER INFORMED OF CURRENT ED VISIT AND STATUS OF PT.
[2020-05-13 16:50] LABS: HEMATOCRIT 40.3 % (42.0-52.0); LYMPH # 0.9 10*3/uL (1.3-4.4); LYMPH % 17.8 % (27.0-41.0); MEAN CELL VOLUME 95.7 fl (80.0-94.0); MEAN CORPUSCULAR HGB 32.1 pg (27.0-31.0); MEAN CORPUSCULAR HGB CONC 33.5 g/dl (33.0-37.0); MEAN PLATELET VOLUME 9.5 fl (9.6-12.3); MONO # 0.5 10*3/uL (0.1-1.0); MONO % 10.4 % (3.0-9.0); NEUT # 3.5 10*3/uL (2.3-7.9); NEUT % 71.6 % (47.0-73.0); PLATELET COUNT AUTOMATED 135 10*3/uL (130-400); RED BLOOD COUNT 4.21 10*6/uL (4.50-5.90); RED CELL DISTRI WIDTH 14.5 % (0-14.5); WHITE BLOOD COUNT 4.8 10*3/uL (4.8-10.8)
[2020-05-13 17:05] LABS: ALBUMIN 3.3 gm/dl (3.1-4.5); ALKALINE PHOSPHATASE 89 U/L (45-117); BUN 15 mg/dl (7-24); CHLORIDE 104 mmol/L (98-107); CREATININE 0.79 mg/dL (0.70-1.30); POTASSIUM 4.8 mmol/L (3.5-5.1); SGOT/AST 57 IU/L (3-35); SGPT/ALT 37 U/L (12-78); SODIUM 136 mmol/L (136-145); TOTAL PROTEIN 7.3 gm/dL (6.4-8.2)
--- NOTE | 2020-05-13 17:39 | NUR ---
[facility] IN [place] WAS CONTACTED REGARDING THE PATIENTS CURRENT MED REC. I SPOKE TO CASSANDRA IN THE PHARMACY AND SHE STATES THAT SHE WILL FAX A COPY OF HIS MEDICATIONS TO THE HOSPITAL.
--- NOTE | 2020-05-13 17:57 | NUR ---
PATIENT RESTING AT THIS TIME. PROVIDED A BOXED LUNCH.
--- NOTE | 2020-05-13 18:31 | NUR ---
ATTEMPTED TO CONTACT THE NURSE RECEIVING THE PATIENT ON THE FOURTH FLOOR. THERE WAS NO ANSWER.
--- NOTE | 2020-05-13 21:00 | NUR ---
A 84, admitted to , under the services of Dr. ZHANNA ACKERMAN,MARY Draper with a diagnosis of UNABLE TO AMBULATE, FALL. Chief complaint is FALL. Patient arrived via bed from ER. Monitor applied. Initial assessment completed. Vital signs taken and recorded. DR. ZHANNA ACKERMAN,MARY Draper notified of admission to the unit. Orders received. See assessment for past medical history, medications and allergies. Patient and/or family oriented to unit. [address] visitation policy reviewed. Clothing/patient valuable form completed. CINDY MARRERO
--- NOTE | 2020-05-13 22:52 | NUR ---
PT MEDICATED WITH PRN TORADOL FOR C/O PAIN "ALL OVER" RATED A 10/10. WILL MONITOR FOR EFFECTIVENESS.
--- NOTE | 2020-05-13 23:10 | NUR ---
PT ASLEEP IN BED AT THIS TIME. NO S/S OF DISTRESS NOTED. PRN TORADOL EFFECTIVE.
[2020-05-14] VITALS: BP 163/72
[2020-05-14] MEDS ORDERED: RIVASTIGMINE TAR6 M1 PO (05:33)
[2020-05-14] MEDS ORDERED: PRAVACHOL40 MG PO (05:34)
[2020-05-14] MEDS ORDERED: FLOMAX0.4 MG PO (05:34)
[2020-05-14] MEDS ORDERED: Synthroid,Lev125 MCG PO (05:35)
[2020-05-14] MEDS ORDERED: CYMBALTA60 MG PO (05:35)
--- NOTE | 2020-05-14 06:05 | NUR ---
PT ADMINISTERED PRN TORADOL FOR C/O PAIN "ALL OVER" RATED A 7/10. WILL CONTINUE TO MONITOR.
--- NOTE | 2020-05-14 07:45 | NUR ---
PHYSICAL THERAPY Screen and PT eval received will follow thank you Audra Menon PT
[2020-05-14 08:00] VITALS: BP 146/90
--- NOTE | 2020-05-14 08:40 | NUR ---
PHYSICAL THERAPY Evaluation intiated upon further assessment c/o R jaw pain/clicking RODGERS and c/o "flashes of light" also c/o neck pain pt did have fall states he did hit his head no CT head/neck done in ED. Spoke w Dr. Mercer reg above complaints to order further testing/CT. Will follow once tests cleared. Audra Menon PT
--- NOTE | 2020-05-14 09:00 | NUR ---
Nurse School in to talk to patient. Patient states lives at home alone with his daughter and son checking in on him. There are 0 steps in the home. There is a wheelchair ramp. Physician: Dr. Awais Mercer [facility]: [facility] Home health services: none Patient's level of ADLs: MODERATE ASSIST Patient has working utilities: yes DME: walker, electric wheelchair, wheelchair Follow-up physician's appointment after d/c: he prefers to make his own follow up appt after discharge Does patient want to access PORTAL?: no Discharge plan discussed with patient. He lives at home alone with his daughter and son checking in on him. He needs minimal assistance with his ADLs and ambulates with a walker. Discussed short term SNF and he is agreeable. When provided with a list of facilities he chose [facility]. tool and production planner notified. IVANNA CROCKETT
--- NOTE | 2020-05-14 09:05 | NUR ---
OT NOTE Occupational therapy evaluation initiated and following further assessment patient had complaints of R jaw pain/clicking, headache with complaints of "flashes of light", and complaints of increased neck pain and stiffness following his fall. When asked if he hit head or neck when falling at home, patient stated "I must have." Discussed with Dr. Mercer whom stated he is ordering CT head/neck. Will hold for results. Thank you. Tasneem Kate, OTR/L
--- NOTE | 2020-05-14 10:35 | NUR ---
Occupational Therapy evaluation completed on four with full evaluation to follow. Recommend occupational therapy per plan of care and SNF upon discharge. Thank you for this referral. Tasneem Kate OTR/L
--- NOTE | 2020-05-14 10:45 | NUR ---
PHYSICAL THERAPY Physical Therapy evaluation completed on 4th floor with full evaluation to follow. Recommend physical therapy per plan of care and SNF upon discharge. Thank you for this referral. Audra Menon PT
--- NOTE | 2020-05-14 10:57 | NUR ---
MOM GIVEN PER ORDER FOR C/O CONSTIPATION. NO BM FOR 3 DAYS PER PT. WILL MONITOR EFFECTIVENESS.
--- NOTE | 2020-05-14 11:57 | NUR ---
MOM EFFECTIVE AT THIS TIME.
[2020-05-14 12:00] VITALS: BP 162/71
--- NOTE | 2020-05-14 14:17 | NUR ---
Patient requesting a referral to [facility]. Contacted facility and faxed full referral. Requires precert and covid test results.
[2020-05-14 16:00] VITALS: BP 118/59; BP 146/59
--- NOTE | 2020-05-14 16:13 | NUR ---
PT MEDICATED WITH IV TORADOL PER PRN ORDER FOR C/O GENERALIZED PAIN/DISCOMFORT. WILL MONITOR EFFECTIVENESS.
--- NOTE | 2020-05-14 17:13 | NUR ---
TORADOL RELIEVING PAIN PER PT. WILL CONTINUE TO MONITOR.
--- NOTE | 2020-05-14 19:32 | NUR ---
24 HR CHART CHECK COMPLETE.
[2020-05-14 20:00] VITALS: BP 112/53
--- NOTE | 2020-05-14 22:26 | NUR ---
PT MEDICATED WITH PRN TORADOL FOR C/O HIP PAIN RATED A 7/10. WILL MONITOR FOR EFFECTIVENESS.
--- NOTE | 2020-05-14 23:20 | NUR ---
PT ASLEEP IN BED AT THIS TIME. NO S/S OF DISTRESS NOTED. PRN TORADOL APPEARS EFFECTIVE.
[2020-05-15] VITALS: BP 139/71
--- NOTE | 2020-05-15 05:31 | NUR ---
PT MEDICATED WITH PRN TORADOL FOR C/O PAIN ALL OVER RATED AN 8/10. WILL MONITOR FOR EFFECTIVENESS.
--- NOTE | 2020-05-15 06:10 | NUR ---
PT ASLEEP IN BED AT THIS TIME. NO S/S OF DISTRESS NOTED. PRN TORADOL APPEARS EFFECTIVE.
[2020-05-15 06:52] LABS: CHLORIDE 104 mmol/L (98-107); CREATININE 0.75 mg/dL (0.70-1.30); POTASSIUM 4.2 mmol/L (3.5-5.1); SODIUM 136 mmol/L (136-145)
[2020-05-15 06:54] LABS: BUN 27 mg/dl (7-24)
--- NOTE | 2020-05-15 07:55 | NUR ---
Patient accepted to [facility], precert started, waiting on Covid results and auth
[2020-05-15 08:00] VITALS: BP 128/67
--- NOTE | 2020-05-15 09:00 | NUR ---
CM in to see patient. Therapy is currently working with him. He is sitting up in his bedside recliner. associate merchandise planner following for referral to [facility]. COVID pending.
--- NOTE | 2020-05-15 09:15 | NUR ---
OT NOTE Pt was seen this A.M. 1:1 for 28 minute OT session. Upon arrival pt was sitting upright in the bedside chair. Pt A&O X 2 to name and however not to place, pt reoriented at this time. Pt had complaints of 8/10 L hip, neck, and Rib pain. Pt completed multiple sit to stand transfers from chair level with Ijeoma X 2 and use of w/w for UE support. Upon inital rise pt had complaints of feeling dizzy, pt educated on visual fixation technique which he reported after aprox 30 seconds that he was no longer dizzy. Challenged pt's static standing tolerance needed for increased I in self care tasks and functional transfers. Pt was able to tolerate aprox 30, 43, and 60 seconds before sitting due to fatigue and pain. With each stand pt required verbal prompts for visual fixation due to standing with eyes closed while having complaints of being dizzy. After a seated rest break pt completed standing pivot from the EOB to the bedside commode with CGA and use of w/w. There he transferred on to the bedside commode with CGA and off with Ijeoma. While seated in the recliner pt completed AROM to BUE's over all planes to point of tolerance for 1 X 10 to increase and restore maximum functional use. At the end of the session pt requested to be transferred back into bed for some rest. Sit to stand from recliner with Ijeoma X 2 and use of w/w followed by standing pivot to the EOB with CGA and use of w/w. While stepping back to the EOB pt had one LOB that required modA to correct. Pt transferred sit to supine with maxA X 2. There he was left with call light in hand, tray table in place, and bed alarm activated for safety. Continue with rec D/C plan to SNF. BROOK[place]N Gonzalez/Julieta
--- NOTE | 2020-05-15 09:15 | NUR ---
PHYSICAL THERAPY Patient presented to therapy with report of 8/10 pain in the L hip, neck, shoulders, and ribs from a fall he had at home. Patient is in sitting in bedside chair. Patient gives informed consent for treatment. Patient was identified by name and on wristband. Patient performed STS from bedside chair with MIN A X 2 and verbal cues for hand placement. Patient stood at Walker with CGA for 25 sec the 1st attempt , 43 sec the 2nd attempt and 1 min the 3rd attempt. Patient has a tremor in R UE and hand. Patient SPT transfer to low chair placed to patient's L side with CGA. Patient required verbal cues for hand placement and proper technique for SPT. Patient sat in bedside chair with CGA and perfomred seated bilateral LE ther ex including LAQs and heel/toe raises 2 x 10 reps each for strengthening the LEs. Patient was left in bedside chair with chair alarm tested and attached to patient and call light within reach. Patient was 1:1 with this BOX GLUER for 20 minutes total. PROSPER SOMERS BOX GLUER
[2020-05-15 12:00] VITALS: BP 132/60
--- NOTE | 2020-05-15 12:09 | NUR ---
Patient accepted to [facility], precert started, must have negative covid result prior to discharge.
--- NOTE | 2020-05-15 13:37 | NUR ---
Patient has auth for [facility], however a negative covid test result is required prior to discharge. If Covid results come back over the weekend and are negative patient can go to [facility] if medically stable for discharge. This auth is good for 48 hours/until Monday evening.
--- NOTE | 2020-05-15 13:54 | NUR ---
Notified Dr. Mercer patient can discharge over the weekend to [facility] if patient's COVID test is negative.
--- NOTE | 2020-05-15 15:13 | NUR ---
PHYSICAL THERAPY CO-SIGN I approve of the Phyical Therapy notes written above. Audra Menon PT
--- NOTE | 2020-05-15 15:32 | NUR ---
OCCUPATIONAL THERAPY CO-SIGN I approve of the Occupational Therapy notes written above. FLIP IRVIN, OTR/L
[2020-05-15 16:00] VITALS: BP 115/67
--- NOTE | 2020-05-15 19:00 | NUR ---
ARRIVED ON SHIFT, REPORT RECEIVED FROM OFFGOING NURSE, ASSUMED CARE OF PATIENT.
[2020-05-15 20:00] VITALS: BP 104/60
--- NOTE | 2020-05-15 23:10 | NUR ---
PATIENT C/O HEADACHE, MEDICATED WITH TORDOL ORDERED PRN
[2020-05-16] VITALS: BP 151/73
--- NOTE | 2020-05-16 00:09 | NUR ---
good relief from tordol given x 1 hour ago as evidenced by patient resting quietly with eyes closed, no s/s of distress noted.
--- NOTE | 2020-05-16 01:54 | NUR ---
24 HR chart check completed.
--- NOTE | 2020-05-16 01:55 | NUR ---
PATIENT RESTING QUIETLY WITH EYES CLOSED, BED IN LOW POSITION, SIDE RAILS UP X 2 FOR TURNING AND REPOSITIONING, BED ALARM ON, CALL LIGHT WITHING REACH. PATRICK BAKER
[2020-05-16 06:51] LABS: BUN 22 mg/dl (7-24); CHLORIDE 104 mmol/L (98-107); CREATININE 0.77 mg/dL (0.70-1.30); SODIUM 136 mmol/L (136-145)
[2020-05-16 08:00] VITALS: BP 135/71
--- NOTE | 2020-05-16 09:25 | NUR ---
NOTIFIED DR. SIMMS OF CONSULT.
[2020-05-16 12:00] VITALS: BP 129/75
[2020-05-16 16:00] VITALS: BP 103/65
[2020-05-16 20:00] VITALS: BP 96/60
[2020-05-17] VITALS: BP 115/58
--- NOTE | 2020-05-17 00:20 | NUR ---
5MG DULCOLAX ORDERED AT THIS TIME FOR PATIENT C/O CONSTIPATION.
--- NOTE | 2020-05-17 01:40 | NUR ---
PRN TORADOL GIVEN AT THIS TIME FOR PATIENT C/O HEADACHE. CALL LIGHT IS WITHIN REACH, WILL MONITOR EFFECT.
--- NOTE | 2020-05-17 02:00 | NUR ---
PRN TORADOL SEEMS EFFECTIVE. CALL LIGHT IS WITHIN REACH.
--- NOTE | 2020-05-17 03:00 | NUR ---
BED BATH GIVEN BY TROUBLE TRACER.
--- NOTE | 2020-05-17 03:31 | NUR ---
CHART CHECK COMPETE,
--- NOTE | 2020-05-17 03:40 | NUR ---
PRN DULCOLAX AND TYLENOL GIVEN AT THIS TIME FOR PATIENT C/O CONSTIPATION AND HEADACHE. CALL LIGHT IS WITHIN REACH. WILL CONTINUE TO MONITOR.
[2020-05-17 06:32] LABS: BUN 26 mg/dl (7-24); CHLORIDE 105 mmol/L (98-107); CREATININE 0.81 mg/dL (0.70-1.30); POTASSIUM 3.8 mmol/L (3.5-5.1); SODIUM 136 mmol/L (136-145)
[2020-05-17 08:00] VITALS: BP 147/67
--- NOTE | 2020-05-17 08:20 | NUR ---
24 HR chart check completed.
--- NOTE | 2020-05-17 09:00 | NUR ---
RESTING IN BED WITH NO ACUTE DISTRESS NOTED. RESPIRATIONS EASY. LUNGS DIMINISHED. PULSE OX 95% RA. CLAIMS COUGH PROD FOR WHITE. CALL LIGHT WITHIN REACH. NO VOICED COMPLAINTS. BED ALARM MAINTAINED FOR SAFETY
[2020-05-17] MEDS ORDERED: ASPIRIN ADULT L81 M2 PO (11:50)
[2020-05-17] MEDS ORDERED: SYNTHROID,LEV125 MCG PO (11:51)
[2020-05-17 12:00] VITALS: BP 136/72
[2020-05-17 16:00] VITALS: BP 148/74
[2020-05-17 20:00] VITALS: BP 154/72
--- NOTE | 2020-05-17 20:18 | NUR ---
PATIENT RESTING IN BED WITH NO NEEDS MADE. WATCHING TV. BED IN LOWEST POSITION, BED ALARM ON, CALL LIGHT IN REACH
--- NOTE | 2020-05-17 21:01 | NUR ---
PATIENT SETTING BED ALARM ON, STANDING BESIDE BED WHEN ENTERING ROOM. CONFUSED TO TIME AND PLACE. REORIENTED AND ASSISTED BACK TO BED. BED ALARM ON, BED IN LOW POSITION, CALL LIGHT IN REACH
--- NOTE | 2020-05-17 22:14 | NUR ---
MEDICATED WITH PRN TYLENOL FOR C/O HEADACHE. WILL MONITOR
--- NOTE | 2020-05-17 22:25 | NUR ---
PATIENT SETTING BED ALARM OFF. ASSISTED WITH URINAL AND BACK TO BED. ATTEMPTED TO HAVE BOWEL MOVEMENT VIA BED REYES WITH NO SUCCESS. ALERT TO PLACE, CONFUSED TO MONTH. REORIENTED. BED IN LOWEST POSITION, BED ALARM ON, CALL LIGHT IN REACH
--- NOTE | 2020-05-17 23:14 | NUR ---
MEDICATION NOT EFFECTIVE PER PATIENT
[2020-05-18] VITALS: BP 156/74
--- NOTE | 2020-05-18 00:29 | NUR ---
MEDICATED WITH PRN TORADOL FOR C/O NECK AND BACK PAIN AND HEADACHE. WILL MONITOR
--- NOTE | 2020-05-18 01:29 | NUR ---
MEDICATION EFFECTIVE PER PATIENT
--- NOTE | 2020-05-18 03:39 | NUR ---
24 HR chart check completed.
--- NOTE | 2020-05-18 06:38 | NUR ---
PATIENT REMAINED AWAKE THROUGHOUT THE NIGHT. BED ALARM ON, BED IN LOW POSITION, CALL LIGHT IN REACH
[2020-05-18 06:43] LABS: HEMATOCRIT 38.6 % (42.0-52.0); MEAN CELL VOLUME 94.6 fl (80.0-94.0); MEAN CORPUSCULAR HGB 31.9 pg (27.0-31.0); MEAN CORPUSCULAR HGB CONC 33.7 g/dl (33.0-37.0); MEAN PLATELET VOLUME 10.3 fl (9.6-12.3); PLATELET COUNT AUTOMATED 126 10*3/uL (130-400); RED BLOOD COUNT 4.08 10*6/uL (4.50-5.90); RED CELL DISTRI WIDTH 13.9 % (0-14.5); WHITE BLOOD COUNT 4.6 10*3/uL (4.8-10.8)
[2020-05-18 07:02] LABS: ATYPICAL LYMPHS 1 % (0-0); PLATELET SUFFICIENCY LOW (NORMAL); TOTAL CELLS COUNTED 100 #CELLS
--- NOTE | 2020-05-18 07:30 | NUR ---
PT RESTING IN BED. RESPS EASY AND NON LABORED. NO S/S OF DISTRESS NOTED. VSS. BP HIGH-AM MEDICATIONS GIVEN. A/OX3 W PERIODS OF CONFUSION.C.O CHILLS AND COUGH. NO SOB NOTED. WHEEZES T/O.ROOM AIR. FALL PRECUATIONS MAINTAINED. WILL CONTINUE TO MONITOR. CALL LIGHT WITHIN REACH.
[2020-05-18 08:00] VITALS: BP 168/88
[2020-05-18 09:54] VITALS: BP 150/80
--- NOTE | 2020-05-18 10:10 | NUR ---
OT NOTE Pt was seen this A.M. 1:1 for 20 minute OT session. Upon arrival pt was supine in bed. Pt was A&O X 3, identified by name and , and presented to therapy on room air with SpO2 reading 90%. Pt had complaints of 8/10 pain "all over" and reports of 10/10 pain in his head reporting "it comes and goes, and when it comes it feels like a knife is going through it." Pt did present with occasional facial grimace throughout session with reports of "stabbing" in his head. Pt transferred supine to sit EOB with maxA X 2. Upon inital rise to the EOB pt had complaints of feeling dizzy. Pt was educated on visual fixation technique and after aprox 60 seconds pt had no other complaints. Pt completed multiple sit to stand transfers from EOB with Ijeoma X 2 and use of w/w for UE support. Challenged pt's static standing tolerance needed for increased I in self care tasks and functional transfers. Pt was able to tolerate aprox 45 seconds at a time before sitting due to fatigue. To sit EOB pt was provided with verbal, tactile, and visual prompts due to "freezing" and not moving resulting in maxA to sit EOB all attempts. Pt's SpO2 reading 88% and within aprox 20 seconds raised to 90%. No other tasks completed at this time due to pt's poor command follow, continued complaints of feeling dizzy, and continued bouts of facial grimace with 10/10 pain reported in his head. SpO2 reading 90% at rest. Pt transferred back into bed sit to supine with maxA X 2 where he was left with call light in hand, tray table in place, and bed alarm activated for safety. Pt's nurse Fani was notified of pt's SpO2 reading and pt's performance. Continue with rec D/C plan to SNF. DEEPAK Gonzalez
--- NOTE | 2020-05-18 10:20 | NUR ---
PHYSICAL THERAPY Patient presented to therapy in supine in bed and head of bed elevated with bed alarm on. Patient is COVID + and donning of PPE performed as per air borne precaution protocol. Patient gives informed given for treatment. Patient was identified by name and on wristband. Patient is not on spO2. Patient does not have IVs and does not have a catheter. Patient seems confused. Patient complains of head pain, LBP and dizziness upon standing. Patient completed supine <> sitting on EOB with MAX A X 2. Patient sat on EOB with SBA - CGA. Patient performed STS from EOB MIN A X 2 and verbal cues for pushing off bed with hands. Patient stood at Walker with CGA X 2 45 seconds each time with verbal cues for upright posture, locking knees into extension and pushing down on walker with hands. Patient did not have any LOB standing, but he was very dizzy and complained of head pain. Gait was not attempted due to the dizziness. Patient was verbal cued to sit on EOB hwever he attempted to sit and then froze and was not willing or unable to sit on EOB. AFTER A CONSIDERABLE amount of time he sat on EOB with MAX A X 1. Patient's O2 SAT AND PULSE were taken and recorded as 89% -90% and pulse at 72. Patient stood again with MIN A X 2 and side-stepped up to head of bed with WALKER with CGA X 2. AGAIN , PATIENT SAT WITH DIFFICULTY FREEZING UP LONGTERM DOWN TO SIT. Patient was transferred sit EOB > SUPINE in bed with MAX A X 2. Patient moved up to head of bed with sheet and MAX A X 2. Patient was left in supine in bed with head of bed elevated, call light within reach and bed alarm on. Patient is not on spO2. Patient's nurse, DIOGENES AQUINO was informed of patient being confused and this is NOT normal for him, as well as his O2 SAT not climbing above 90%. Patient treatment witnessed by BROOKLYN Steiner. Patient was 1:1 with this DOCKET CLERK for 25 minutes total. PROSPER SOMERS DOCKET CLERK
--- NOTE | 2020-05-18 11:12 | NUR ---
Patients updated clinicals and therapy notes faxed to [facility], asked to start precert again. Waiting on auth.
[2020-05-18 12:00] VITALS: BP 155/76; BP 164/78
--- NOTE | 2020-05-18 13:38 | NUR ---
PT SPO2 88%, PLACED ON 2L NC AT THIS TIME. SPO2 WNL. RESPS EASY AND NON LABORED. WILL CONTINUE TO MONITOR. CALL LIGHT WITHIN REACH.
--- NOTE | 2020-05-18 14:20 | NUR ---
Patient has auth for today only 07/19/2019 if medically stable. Contacted resident phone and spoke with Dr. Dias. She will discuss with Dr. Lezama and get back to us. If patient doesn't go today, will restart precert again tomorrow.
[2020-05-18] MEDS ORDERED: ZITHROMAX250 MG PO ×2 (14:32)
--- NOTE | 2020-05-18 14:34 | NUR ---
Received call from Dr. Dias. Plan is to discharge patient to [facility] today. associate merchandise planner notified.
--- NOTE | 2020-05-18 14:43 | NUR ---
Patient is discharged to [facility] via [facility] at 4PM. delivery room clerk, RANI notified. Attempted to notify hui (patients son) unable to contact, left message.
--- NOTE | 2020-05-18 14:54 | NUR ---
REPORT GIVEN TO NURSE AT [facility]
--- NOTE | 2020-05-18 15:10 | NUR ---
PT WAS WALKED IN ROOM ON ROOM AIR. SAO2 DID NOT DROP BELOW 96%
--- NOTE | 2020-05-18 15:57 | NUR ---
PT DOES NOT QUALIFY FOR OXYGEN.
[2020-05-18 16:00] VITALS: BP 150/54
--- NOTE | 2020-05-18 16:15 | NUR ---
Discharge instructions reviewed with patient/family. Patient receptive and verbalizes understanding. Follow-up care arranged. Written instructions given to patient/family. MILES JACOBO The Discharge Plan/Instructions have been completed. Hep Lock discontinued. Site asymptomatic. Pressure applied. Sterile dressing applied. MILES JACOBO
--- NOTE | 2020-05-19 07:40 | NUR ---
OCCUPATIONAL THERAPY CO-SIGN I approve of the Occupational Therapy notes written above. FLIP IRVIN, OTR/L
--- NOTE | 2020-05-19 07:56 | NUR ---
PHYSICAL THERAPY CO-SIGN I approve of the Physical Therapy notes written above. Audra Menon PT
== END 2020-05-18 16:15 | disposition other institution (70) | DRG 178 ==
LOC: ED 11:24 → 4E 16:45 → EDHOLD 16:45 → 4E 18:32
PROVIDERS: Internal Medicine; Nurse Practitioner Family; ADMIT Emergency Medicine; ATTEND Emergency Medicine
DX: U07.1 COVID-19 (principal); F33.1 Major depressive disorder, recurrent, moderate; M25.552 Pain in left hip; R62.7 Adult failure to thrive; M15.9 Polyosteoarthritis, unspecified; J44.9 Chronic obstructive pulmonary disease, unspecified; W19.XXXA Unspecified fall, initial encounter; D64.9 Anemia, unspecified; R26.2 Difficulty in walking, not elsewhere classified; E03.9 Hypothyroidism, unspecified; M25.519 Pain in unspecified shoulder; M54.2 Cervicalgia; I10 Essential (primary) hypertension; E78.5 Hyperlipidemia, unspecified; I87.2 Venous insufficiency (chronic) (peripheral); Y93.89 Activity, other specified; Y92.098 Other place in other non-institutional residence as the place of occurrence of the external cause; Y99.8 Other external cause status; Z68.27 Body mass index [BMI] 27.0-27.9, adult

== ENCOUNTER 2020-05-19 07:26 | Emergency (ER) | payer OTHER ==
[~2020-05-19] VITALS: Ht 182.8 cm; Wt 81.6 kg
[~2020-05-19 07:26] MED LIST changes: +ASPIRIN ADULT L81 M2 PO; +CYMBALTA60 MG PO; +FLOMAX0.4 MG PO; +PRAVACHOL40 MG PO; +RIVASTIGMINE TAR6 M1 PO; +SYNTHROID,LEV125 MCG PO; +Synthroid,Lev125 MCG PO; +ZITHROMAX250 MG PO
[2020-05-19 08:01] LABS: BASO % 0.2 % (0.0-1.0); EOS % 0.2 % (1.0-4.0); HEMATOCRIT 40.4 % (42.0-52.0); LYMPH # 0.5 10*3/uL (1.3-4.4); LYMPH % 9.2 % (27.0-41.0); MEAN CELL VOLUME 94.4 fl (80.0-94.0); MEAN CORPUSCULAR HGB 31.5 pg (27.0-31.0); MEAN CORPUSCULAR HGB CONC 33.4 g/dl (33.0-37.0); MEAN PLATELET VOLUME 9.7 fl (9.6-12.3); MONO # 0.2 10*3/uL (0.1-1.0); MONO % 3.8 % (3.0-9.0); NEUT # 4.9 10*3/uL (2.3-7.9); NEUT % 85.7 % (47.0-73.0); PLATELET COUNT AUTOMATED 147 10*3/uL (130-400); RED BLOOD COUNT 4.28 10*6/uL (4.50-5.90); RED CELL DISTRI WIDTH 13.9 % (0-14.5); WHITE BLOOD COUNT 5.7 10*3/uL (4.8-10.8)
[2020-05-19 08:19] LABS: ALBUMIN 2.7 gm/dl (3.1-4.5); ALKALINE PHOSPHATASE 89 U/L (45-117); BUN 18 mg/dl (7-24); CHLORIDE 103 mmol/L (98-107); CREATININE 0.86 mg/dL (0.70-1.30); POTASSIUM 4.1 mmol/L (3.5-5.1); SGOT/AST 92 IU/L (3-35); SGPT/ALT 48 U/L (12-78); SODIUM 135 mmol/L (136-145); TOTAL PROTEIN 6.9 gm/dL (6.4-8.2)
== END 2020-05-19 09:59 | disposition home or self-care (01) ==
LOC: ED 07:26
PROVIDERS: Family Medicine
DX: M25.511 Pain in right shoulder (principal); M25.512 Pain in left shoulder; M25.521 Pain in right elbow; M25.522 Pain in left elbow; R51.9 Headache, unspecified; Z79.2 Long term (current) use of antibiotics; Z79.899 Other long term (current) drug therapy; Z98.890 Other specified postprocedural states; Z96.642 Presence of left artificial hip joint; Z79.82 Long term (current) use of aspirin; W19.XXXA Unspecified fall, initial encounter; Y93.89 Activity, other specified; Y92.128 Other place in nursing home as the place of occurrence of the external cause; Y99.8 Other external cause status

== ENCOUNTER 2020-05-21 14:25 | Inpatient (IN) | payer OTHER ==
[~2020-05-21] VITALS: Ht 172.7 cm; Wt 76.3 kg
[2020-05-21 14:30] VITALS: BP 135/65
[2020-05-21 15:36] LABS: ABG BASE EXCESS 1.4 mmol/L (-2.0-2.0); ARTERIAL BLOOD GAS PH 7.483 (7.35-7.45)
[2020-05-21 15:59] LABS: HEMATOCRIT 39.5 % (42.0-52.0); MEAN CELL VOLUME 93.8 fl (80.0-94.0); MEAN CORPUSCULAR HGB 31.4 pg (27.0-31.0); MEAN CORPUSCULAR HGB CONC 33.4 g/dl (33.0-37.0); MEAN PLATELET VOLUME 9.8 fl (9.6-12.3); PLATELET COUNT AUTOMATED 203 10*3/uL (130-400); RED BLOOD COUNT 4.21 10*6/uL (4.50-5.90); RED CELL DISTRI WIDTH 14.3 % (0-14.5); WHITE BLOOD COUNT 5.7 10*3/uL (4.8-10.8)
--- NOTE | 2020-05-21 16:00 | NUR ---
PATIENT PLACED ON OPTI FLOW AT 55L 80%. SPO2 92-94%, PATIENT TOLERATING WELL. ABGS ORDERED IN 1 HOUR.
[2020-05-21 16:02] VITALS: BP 144/63
--- NOTE | 2020-05-21 16:02 | NUR ---
PT BEING SWITCHED FROM NON REBREATHER TO HIGH FLOW HUMIDIFIED OPPI FLOW O2 PER RESP THERAPY DEPT. PT IS TOLERATING WELL AND IS CURRENTLY WITH A PULSE OX OF 94%. HE IS ALERT,PLEASANT AND DENIES ANY C/O. ---KELLI COATES RN
--- NOTE | 2020-05-21 16:09 | NUR ---
PT AT 80% O2 ON 55L OPTI FLOW O2.PULSE OX 94%----KELLI COATES RN
[2020-05-21 16:12] LABS: ALBUMIN 2.5 gm/dl (3.1-4.5); ALKALINE PHOSPHATASE 102 U/L (45-117); BUN 23 mg/dl (7-24); CHLORIDE 104 mmol/L (98-107); CREATININE 0.93 mg/dL (0.70-1.30); LDH 577 U/L (87-241); SGOT/AST 84 IU/L (3-35); SGPT/ALT 45 U/L (12-78); SODIUM 136 mmol/L (136-145); TOTAL PROTEIN 7.4 gm/dL (6.4-8.2)
[2020-05-21 16:20] LABS: CPK 60 U/L (39-308); POTASSIUM 3.9 mmol/L (3.5-5.1); TROPONIN I < 0.015 ng/ml (<0.045)
[2020-05-21 16:27] LABS: ATYPICAL LYMPHS 1 % (0-0); BASOPHILS 1 % (0-1); TOTAL CELLS COUNTED 100 #CELLS
[2020-05-21 16:28] LABS: PLATELET SUFFICIENCY NORMAL (NORMAL)
[2020-05-21 16:36] LABS: ACT PARTIAL THROMBO TIME 28.7 SECONDS (20.0-32.1); INTERNATIONAL NORM RATIO 1.1 (2.0-3.5)
[2020-05-21 17:21] VITALS: BP 135/70
[2020-05-21 17:52] LABS: ABG BASE EXCESS 1.4 mmol/L (-2.0-2.0); ARTERIAL BLOOD GAS PH 7.487 (7.35-7.45)
[2020-05-21 18:12] VITALS: BP 145/64
[2020-05-21 18:31] LABS: BILIRUBIN 2+ (Negative); BLOOD Negative (Negative); CLARITY Clear (Clear); COLOR Dark Yellow (Yellow); GLUCOSE Negative (Negative); KETONE Trace (Negative); LEUKO ESTERASE 1+ (Negative); NITRITE Negative (Negative); PH 5.5 (4.5-8.0); SPECIFIC GRAVITY >= 1.030 (1.001-1.030)
[2020-05-21 18:38] LABS: BACTERIA 1+
--- NOTE | 2020-05-21 18:54 | NUR ---
SPOKE WITH PT FAMILY AND GAVE THEM AN UPDATE.ALSO LISTED THEIR PHONE NUMBERS FOR NEXT OF KIN REQUESTED.---KELLI COATES RN
[2020-05-21 18:55] VITALS: BP 133/56
--- NOTE | 2020-05-21 20:43 | NUR ---
FAMILY CALLED IN FOR UPDATE ON PT
[2020-05-21 22:50] VITALS: BP 136/68
--- NOTE | 2020-05-21 22:52 | NUR ---
PT RESTING IN BED WITH EYES CLOSED, NO ACUTE DISTRESS NOTED, NO CHANGES IN PT CONDITION, RN WILL CONTINUE TO MONITOR
[2020-05-22] VITALS (8 sets, daily range): BP systolic 123–166; BP diastolic 58–90
--- NOTE | 2020-05-22 03:44 | NUR ---
PT RESTING IN BED WITH EYES CLOSED NO ACUTE DISTRESS NOTED RN WILL CONTINUE TO MONITOR
[2020-05-22 06:08] LABS: ALBUMIN 2.2 gm/dl (3.1-4.5); BUN 27 mg/dl (7-24); CHLORIDE 107 mmol/L (98-107); CREATININE 0.72 mg/dL (0.70-1.30); POTASSIUM 4.5 mmol/L (3.5-5.1); SGOT/AST 70 IU/L (3-35); SGPT/ALT 37 U/L (12-78); SODIUM 138 mmol/L (136-145)
[2020-05-22 06:15] LABS: HEMATOCRIT 38.1 % (42.0-52.0); MEAN CELL VOLUME 94.3 fl (80.0-94.0); MEAN CORPUSCULAR HGB 31.4 pg (27.0-31.0); MEAN CORPUSCULAR HGB CONC 33.3 g/dl (33.0-37.0); MEAN PLATELET VOLUME 9.8 fl (9.6-12.3); PLATELET COUNT AUTOMATED 198 10*3/uL (130-400); RED BLOOD COUNT 4.04 10*6/uL (4.50-5.90); RED CELL DISTRI WIDTH 14.3 % (0-14.5); WHITE BLOOD COUNT 4.2 10*3/uL (4.8-10.8)
[2020-05-22 06:18] LABS: ALKALINE PHOSPHATASE 97 U/L (45-117); LDH 541 U/L (87-241)
[2020-05-22 06:51] LABS: ACT PARTIAL THROMBO TIME 28.8 SECONDS (20.0-32.1)
--- NOTE | 2020-05-22 07:00 | NUR ---
LAB REPORTS D-DIMER CORRECTION IS GREATER THAN 35.20.
--- NOTE | 2020-05-22 07:10 | NUR ---
NURSE REPORT ACCEPTED FOR CONTINUATION OF CARE. PT RESTING WITH EYES CLOSED. VITALS STABLE. MEAL TRAY WILL BE ORDERED SHORTLY.
[2020-05-22 07:44] LABS: FERRITIN 644.2 ng/mL (22.0-322.0)
[2020-05-22 07:58] LABS: VITAMIN D, 25-HYDROXY 62.1 ng/mL (30-100)
--- NOTE | 2020-05-22 08:12 | NUR ---
PENDING CONSULT FOR DR SALAMANCA FROM YESTERDAY NOW CALLED. PENDING DR MAIER CONSULT AFTER RESULTS OF ABG TEST PERFORMED A SHORT TIME AGO.
--- NOTE | 2020-05-22 08:18 | NUR ---
POX 93% ON BIPAP 15/8 40%. RESP PERFORMING ABG NOW.
[2020-05-22 08:24] LABS: PLATELET SUFFICIENCY NORMAL (NORMAL); TOTAL CELLS COUNTED 100 #CELLS
[2020-05-22 08:49] LABS: ABG BASE EXCESS 0.9 mmol/L (-2.0-2.0); ARTERIAL BLOOD GAS PH 7.468 (7.35-7.45)
--- NOTE | 2020-05-22 09:00 | NUR ---
Patient is short term at [facility]. runner worker following for return.
--- NOTE | 2020-05-22 09:01 | NUR ---
LELAND MAIER CONSULTED WITH ABG RESULTS. VERBAL ORDER TO CHANGE BIPAP TO 16/12 AT 80% AND REPEAT ABG IN 2 HOURS. I DID INFORM JOHNNY IN RESPIRATORY WHO WILL INPUT THIS ORDER AND PERFORM THE TESTING.
--- NOTE | 2020-05-22 09:51 | NUR ---
REMOVING PT'S BIPAP FOR 5 MINUTES TO FEED HUIM A LARGE GLASS OF MILK AND SOME TOAST HE DESAT'S TO 85% BUT DENIES SOB. BIPAP REPLACED, RETURNS TO 99% WITHIN MOMENTS. 400CC DARK URINE OUTPUT.
--- NOTE | 2020-05-22 11:07 | NUR ---
LARGE GLASS OF WATER PROVIDED. NO FURTHER OUTPUT. POX UP TO 97% ON NEW BIPAP SETTING 27/05 @ 80%. PT DENIES ANY COMPLAINTS.
[2020-05-22 11:52] LABS: ARTERIAL BLOOD GAS PH 7.457 (7.35-7.45)
--- NOTE | 2020-05-22 12:18 | NUR ---
PT PLACED ON BEDPAN FOR 30 MINUTES AT HIS REQUEST. CALLBELL IN PLACE. MEAL TRAY WILL BE DELIVERED IN 30 MIN. REMDESIVIR IS STILL INFUSING PER ORDER.
--- NOTE | 2020-05-22 12:45 | NUR ---
MEAL TRAY PROVIDED, HE REFUSES TO EAT ANY FOOD OR DRINK ANY LIQUIDS AT THIS TIMRE BUT HE HAS BEEN DRINKING WATER WELL THROUGH THE MORNING.
--- NOTE | 2020-05-22 13:30 | NUR ---
DR MAIER CALLS, ORDERS ME TO DETERMINE IF PT HAS A "NO INTUBATION" CLAUSE IN HIS DNR-ARREST DOCUMENT AND TO THEN ASK PT ABOUT THIS. I DID SPEAK AT LENGTH WITH PT WHO REFUSED TWICE IN A ROW TO BE INTUBATED. HE DID ALSO ADMITS HE KNOWS WHAT INTUBATION IS FOR AND STILL DOES NOT WANT IT EVEN IF IT IS A RISK TO HIS LIFE. DR SANTOS'S SUBORDINATE NOTIFIED VIA PHONE WHO WILL COME SIGN THE NEW DNR-ARREST WITH NO INTUBATION DOCUMENT I AM GENERATING. DR MAIER ALSO MADE AWARE.
--- NOTE | 2020-05-22 14:34 | NUR ---
INTERMITTENT PACED RHYTHYUM ON MONITOR PERSISTS SINCE THIS MORNING.
--- NOTE | 2020-05-22 15:38 | NUR ---
NURSE REPORT TO DIOGENES GARCIA, FOR CONTINUATION OF CARE.
--- NOTE | 2020-05-22 17:37 | NUR ---
PT REMOVED FROM BIPAP FOR 5 MINUTES TO EAT. PT SP02 94% ON 15L NON REBREATHER BETWEEN BITES. PT FED 10% OF DINNER WITH DRINKS OF WATER IN BETWEEN. PT ENCOURAGED TO DRINK FLUIDS. PT TOLERATED FOOD AND DRINK WELL. PROVIDED WITH URINAL AND GLASS OF WATER. BIPAP REPLACED AND PT DENIES ANY NEEDS AT THIS TIME.
--- NOTE | 2020-05-22 18:08 | NUR ---
SPOKE WITH DR. MAIER AND HE SAID THAT IT IS OKAY TO CHANGE THE PATIENT TO A TELEMETRY ADMISSION. NURSING TRADES HELPER ROCKY IS AWARE.
--- NOTE | 2020-05-22 22:30 | NUR ---
A 84, admitted to 4E, under the services of GILDA Meng DO with a diagnosis of ACUTE RESPIRATORY FAILURE D/T COVID. Chief complaint is DYSPNEA/LABORED RESPERS. Patient arrived via stretcher from ER. Monitor applied. Initial assessment completed. Vital signs taken and recorded. GILDA MENG DO notified of admission to the unit. Orders received. See assessment for past medical history, medications and allergies. Patient and/or family oriented to unit. visitation policy reviewed. Clothing/patient valuable form completed. CARRILLO LÓPEZ A
[2020-05-23] VITALS: BP 152/86
--- NOTE | 2020-05-23 02:00 | NUR ---
PRN MORPHINE GIVEN FOR PAIN AND DULCOLAX GIVEN FOR C/O CONSTIPATION. CALL LIGHT IS WITHIN REACH, WILL MONITOR EFFECT.
--- NOTE | 2020-05-23 03:00 | NUR ---
PRN MORPHINE EFFECTIVE. CALL LIGHT IS WITHIN REACH.
--- NOTE | 2020-05-23 07:30 | NUR ---
PT RESTING IN BED. RESPS EASY AND NON LABORED. NO S/S OF DISTRESS NOTED. SPO2 FALSELY READING IN THE 80'S.VSS. WHITE BOARD UPDATED. POC DISCUSSED W PT. A/O W PERIODS OF CONFUSION. C/O COUGH AND BREWER. LUNGS DIM T/O. WILL CONTINUE TO MONITOR. FALL RISK PRECAUTIONS MAINTAINED. CALL LIGHT WITHIN REACH.
[2020-05-23 07:53] LABS: HEMATOCRIT 41.8 % (42.0-52.0); MEAN CELL VOLUME 94.6 fl (80.0-94.0); MEAN CORPUSCULAR HGB 31.7 pg (27.0-31.0); MEAN CORPUSCULAR HGB CONC 33.5 g/dl (33.0-37.0); PLATELET COUNT AUTOMATED 243 10*3/uL (130-400); RED BLOOD COUNT 4.42 10*6/uL (4.50-5.90); RED CELL DISTRI WIDTH 14.1 % (0-14.5); WHITE BLOOD COUNT 4.5 10*3/uL (4.8-10.8)
[2020-05-23 08:00] VITALS: BP 143/90
[2020-05-23 08:06] VITALS: BP 157/58
[2020-05-23 08:19] LABS: ALBUMIN 2.2 gm/dl (3.1-4.5); ALKALINE PHOSPHATASE 92 U/L (45-117); BUN 30 mg/dl (7-24); CHLORIDE 107 mmol/L (98-107); CREATININE 0.64 mg/dL (0.70-1.30); POTASSIUM 4.2 mmol/L (3.5-5.1); SGOT/AST 113 IU/L (3-35); SGPT/ALT 67 U/L (12-78); SODIUM 137 mmol/L (136-145); TOTAL PROTEIN 7.3 gm/dL (6.4-8.2)
[2020-05-23 08:21] LABS: CPK 34 U/L (39-308)
--- NOTE | 2020-05-23 08:26 | NUR ---
DR MA NOTIFIED OF CRITICAL LACTIC ACID
[2020-05-23 08:34] LABS: TOTAL CELLS COUNTED 100 #CELLS
[2020-05-23 08:35] LABS: BURR CELLS FEW; PLATELET SUFFICIENCY NORMAL (NORMAL); POLYCHROMASIA SLIGHT
--- NOTE | 2020-05-23 08:37 | NUR ---
TRAINING PROJECT MANAGER CALLING REPEATEDLY. EDUCATION PROVIDED THAT SPO2 MONITOR DOES NOT HAVE GOOD WAVEFORM AND IS INACCURATE. RESPIRATORY AT BEDSIDE AND STATES PT IS ON 12L HFNC AND SPO2 IS 97%.
[2020-05-23] MEDS ORDERED: KEPPRA500 MG PO (08:52)
--- NOTE | 2020-05-23 11:29 | NUR ---
PT TAKEN UP TO 15L HFNC. SPO2 REMAINS IN THE HIGH 80'S. RESPIRATORY NOTIFIED.
--- NOTE | 2020-05-23 11:40 | NUR ---
RESPIRATORY INTO SEE PT. SPO2 97% ON 15L HFNC. NO ACUTE S/S DISTRESS.
[2020-05-23 12:00] VITALS: BP 130/95
--- NOTE | 2020-05-23 13:24 | NUR ---
SPO2 READING 70 ON PTS FINGER. MOVED TO EAR. ON 15L HFNC-SPO2 98%. RESPS EASY AND NON LABORED. NO S/S OF DISTRESS NOTED. SITTING UP EATING LUNCH AT THIS TIME. FALL PRECAUTIONS MAINTAINED. CALL LIGHT WITHIHN REACH.
--- NOTE | 2020-05-23 13:56 | NUR ---
PT C/O 01/19 CHRONIC ACHING/STABBING BACK PAIN.MEDICATED PER ORDER. WILL MONITOR FOR RELIEF. RESPS EASY AND NON LABORED. SITTING UP IN BED WATCHING TV. FALL PRECAUTIONS MAINTAINED. CALL LIGHT WITHIN REACH.
--- NOTE | 2020-05-23 14:31 | NUR ---
PT PREMEDICATED PER ORDER PRIOR TO DOSE OF TOCILUZUMAB.
--- NOTE | 2020-05-23 14:56 | NUR ---
PAIN MEDICATION EFFECTIVE PER PT
[2020-05-23 16:00] VITALS: BP 105/67
--- NOTE | 2020-05-23 17:51 | NUR ---
DAUGHTER UPDATED ON POC.QUESTIONS ANSWERED.
--- NOTE | 2020-05-23 19:41 | NUR ---
CHART CHECK COMPLETE.
[2020-05-23 20:00] VITALS: BP 132/58
--- NOTE | 2020-05-23 21:45 | NUR ---
PLACED PATIENT ON BIPAP FOR HS
[2020-05-24] VITALS: BP 135/70
[2020-05-24 06:27] LABS: HEMATOCRIT 37.3 % (42.0-52.0); MEAN CORPUSCULAR HGB 31.7 pg (27.0-31.0); MEAN CORPUSCULAR HGB CONC 33.8 g/dl (33.0-37.0); MEAN PLATELET VOLUME 9.7 fl (9.6-12.3); PLATELET COUNT AUTOMATED 224 10*3/uL (130-400); RED BLOOD COUNT 3.97 10*6/uL (4.50-5.90); RED CELL DISTRI WIDTH 14.2 % (0-14.5); WHITE BLOOD COUNT 4.6 10*3/uL (4.8-10.8)
[2020-05-24 06:43] LABS: ALBUMIN 2.1 gm/dl (3.1-4.5); BUN 34 mg/dl (7-24); CHLORIDE 108 mmol/L (98-107); CREATININE 0.58 mg/dL (0.70-1.30); POTASSIUM 4.3 mmol/L (3.5-5.1); SGOT/AST 115 IU/L (3-35); SGPT/ALT 78 U/L (12-78); SODIUM 138 mmol/L (136-145)
[2020-05-24 06:46] LABS: ALKALINE PHOSPHATASE 83 U/L (45-117); CPK 39 U/L (39-308); LDH 568 U/L (87-241); TOTAL PROTEIN 6.7 gm/dL (6.4-8.2)
[2020-05-24 07:32] LABS: BURR CELLS FEW; PLATELET SUFFICIENCY NORMAL (NORMAL); POLYCHROMASIA SLIGHT; TOTAL CELLS COUNTED 100 #CELLS
[2020-05-24 07:38] LABS: ATYPICAL LYMPHS 3 % (0-0)
[2020-05-24 08:00] VITALS: BP 139/78
[2020-05-24 12:00] VITALS: BP 125/78
--- NOTE | 2020-05-24 12:48 | NUR ---
PT TAKEN OFF OF BIPAP PLACED ON 100% NRB FOR LUNCH. SPO2 85% RESPS 28-30 AND UNLABORED.
--- NOTE | 2020-05-24 13:48 | NUR ---
PLACED BACK ON BIPAP FOLLOWING LUNCH. TOLERATING WELL. POX 95% ON 80% FIO2.
--- NOTE | 2020-05-24 13:52 | NUR ---
METAL POURER FOR . NOTIFIED OF PT CARE TRANSFER TO THEIR SERVICE. SAID OK, NO NEW ORDERS OBTAINED.
--- NOTE | 2020-05-24 14:13 | NUR ---
SUNIL LEVY CALLED IN, UPDATED ON PT STATUS.
[2020-05-24 16:00] VITALS: BP 141/73
--- NOTE | 2020-05-24 16:22 | NUR ---
HEARD PT YELLING OUTSIDE OF ROOM WITH BIPAP ALARMING. WALKED IN TO FIND BIPAP OFF AND PULLED APART, PT ON ROOM AIR-POX 74%. PLACED ON NONREBREATHER AT 15L-POX 80%. BIPAP PLACED BACK ON-POX 92%. RESTING IN BED, REORIENTED TO SITUATION, EXPLAINED IMPORTANCE OF BIPAP USE/COMPLIANCE. CALL LIGHT IN REACH.
[2020-05-24 20:00] VITALS: BP 140/71
--- NOTE | 2020-05-24 22:32 | NUR ---
24 HR chart check completed.
--- NOTE | 2020-05-24 22:34 | NUR ---
PT IN TEARFUL/DISTRESSED STATE, DUE TO BEING CONFUSED. ATTEMPTED TO ORIENT PT TO SURROUNDS AND TIME. CONTACTED THE PATIENT'S DAUGHTER WHO STATED THAT HE IS NORMALLY CONFUSED. THE DAUGHTER WAS ABLE TO TALK TO HIM AND CALM HIM DOWN.
[2020-05-25] VITALS: BP 141/79
--- NOTE | 2020-05-25 02:44 | NUR ---
P TON AND OFF THE BIPAP ABOUT EVERY 30 MINUTES. STATES THAT HIS MOUTH IS DRY AND THE MASK IS UNCOMFORTABLE. I HAVE BEEN GIVING HIM DRINKS AND BREAKS ON AND OFF THE BIPAP NEEDED. CANNOT CONVICE HIM TO KEEP IT ON THE ENTIRE TIME.
--- NOTE | 2020-05-25 05:38 | NUR ---
PT STATES THAT HE IS IN PAIN. PT IS VERY CONFUSED, WILL MEDICATE PER THE MAR AND FOLLOW UP.
[2020-05-25 06:49] LABS: HEMATOCRIT 39.5 % (42.0-52.0); LYMPH # 0.5 10*3/uL (1.3-4.4); LYMPH % 8.2 % (27.0-41.0); MEAN CELL VOLUME 93.6 fl (80.0-94.0); MEAN CORPUSCULAR HGB 31.3 pg (27.0-31.0); MEAN CORPUSCULAR HGB CONC 33.4 g/dl (33.0-37.0); MEAN PLATELET VOLUME 10.1 fl (9.6-12.3); MONO # 0.2 10*3/uL (0.1-1.0); MONO % 3.3 % (3.0-9.0); NEUT % 87.8 % (47.0-73.0); PLATELET COUNT AUTOMATED 239 10*3/uL (130-400); RED BLOOD COUNT 4.22 10*6/uL (4.50-5.90); RED CELL DISTRI WIDTH 14.2 % (0-14.5); WHITE BLOOD COUNT 5.7 10*3/uL (4.8-10.8)
[2020-05-25 07:06] LABS: ALBUMIN 2.3 gm/dl (3.1-4.5); CHLORIDE 107 mmol/L (98-107); POTASSIUM 4.2 mmol/L (3.5-5.1); SGOT/AST 122 IU/L (3-35); SGPT/ALT 91 U/L (12-78); SODIUM 138 mmol/L (136-145); TOTAL PROTEIN 6.7 gm/dL (6.4-8.2)
[2020-05-25 07:08] LABS: ALKALINE PHOSPHATASE 89 U/L (45-117); BUN 24 mg/dl (7-24); CPK 43 U/L (39-308)
--- NOTE | 2020-05-25 07:42 | NUR ---
EASEMENT WORKER FAXED UPDATES TO [facility]. WILL NEED NEW PT/OT EVALS/ORDERS. EASEMENT WORKER NOTIFIED RN HOSPITALIST COORDINATOR
[2020-05-25 08:00] VITALS: BP 132/76
--- NOTE | 2020-05-25 08:00 | NUR ---
IN PATIENTS ROOM AT THIS TIME. PATIENT PULLED HIS BIPAP OFF POX WAS DOWN TO 64% PLACED PATIENT BACK ON HIS BIPAP. PATIENTS 02 TOOK AWHILE TO COME BACK UP . POX BACK UP TO 97%. ASSESSMENT COMPLETE. VSS. REPOSTIONED IN BED FOR COMFORT. WARM BLANKET PROVIDED. CALL LIGHT WITHIN REACH.
--- NOTE | 2020-05-25 09:59 | NUR ---
MEDICATED WITH PRN MORPHINE FOR CO BACK, BUTT AND HIP PAIN. RESPIRATORY DISTRESS. WILL ASSESS EFFECTIVENESS. CALL LIGHT IN REACH.
--- NOTE | 2020-05-25 10:20 | NUR ---
SPEECH PATHOLOGY Nursing screenng complete and no evaluation recommended at this time. Thank you. Sanjay Bush MA [facility]-INCIDENT COORDINATOR
--- NOTE | 2020-05-25 11:04 | NUR ---
OT NOTE Occupational therapy order and nursing screen received. Will follow up with patient for completion of an OT evaluation. Thank you. Tasneem Kate, OTR/L
--- NOTE | 2020-05-25 11:18 | NUR ---
PHYSICAL THERAPY Nursing screen received and chart reviewed. PT evaluation received. Will follow to complete PT evaluation. Thank you. Kathleen Lopez,PT,DPT
--- NOTE | 2020-05-25 11:34 | NUR ---
Shift chart check completed.
[2020-05-25 12:00] VITALS: BP 156/88
--- NOTE | 2020-05-25 14:52 | NUR ---
OT NOTE Occupational therapy order received and chart reviewed. Per discussion with nursing and respiratory therapist, patient not appropriate at this time for an OT evaluation due to requiring a high amount of O2. Will check back at a later date for completion of an OT eval. Thank you. Tasneem Kate, OTR/L
--- NOTE | 2020-05-25 14:58 | NUR ---
PHYSICAL THERAPY PT evaluation attempted. Spoke with nursing and respiratory therapy about O2 saturation/respiratory status with PT evaluation. Patient deemed not appropriate for skilled PT evaluation at this time, due to need for BiPap and ease of desaturation with little exertion. Will attempt PT evaluation at a later date/time when medically appropriate. Thank you. Kathleen Lopez,PT,DPT
[2020-05-25 16:00] VITALS: BP 122/79
--- NOTE | 2020-05-25 17:33 | NUR ---
PATIENT CONSTANTLY PULLING BIPAP OFF. PATIENT REORIENTED SEVERAL TIMES. IN AND OUT OF PATIENTS ROOM SEVERAL TIMES TO PUT PATIENT BACK ON THE BIPAP. PATIENT PLACED ON NONREBREATHER FOR A LITTLE WHILE TO GIVE HIM AND BREAK, BUT POX WAS BEGGING TO DROP AGAIN. IN PATIENTS ROOM AND FED HIM HIS DINNER AND PLACED HIM BACK ON THE BIPAP. PATIENT STATES UNDERSTANDING OF LEAVING HIS BIPAP ON. CALL LIGHT WITHIN REACH.
--- NOTE | 2020-05-25 18:50 | NUR ---
PATIENT INCONTINENT OF BLADDER AT THIS TIME AND PULLED BIPAP OFF. COMPLETE BED CHANGE AND PATIENT PULLED UP AND REPOSITIONED IN BED FOR COMFORT. PLACED BACK ON BIPAP POX 98%. CALL LIGHT WITHIN REACH.
--- NOTE | 2020-05-25 19:30 | NUR ---
Pt turned to 25/03 from 27/05 and an ABG in 2 hours at 2130 per .
--- NOTE | 2020-05-25 19:53 | NUR ---
PT REPORTED PAIN IN HIS NECK AND BACK, 7/10 IN SEVERITY. WILL MEDICATE PER THE MAR AND FOLLOW UP.
--- NOTE | 2020-05-25 19:54 | NUR ---
RESPIRATORY PLACED PATIENT ON BIPAP, WITH ORDERS TO CALL DR. MAIER WITH THE POST TWO HOUR ABG RESULTS.
[2020-05-25 20:00] VITALS: BP 146/71
--- NOTE | 2020-05-25 20:44 | NUR ---
24 HR chart check completed.
--- NOTE | 2020-05-25 20:46 | NUR ---
PT STATES THAT HE HAS HAD A DECREASE IN PAIN. NOW A 2/, WILL CONTINUE TO MONITOR.
--- NOTE | 2020-05-25 21:23 | NUR ---
PT HAS TAKEN HIMSELF OF THE BIPAP. TRIED SEVERAL TIMES TO CONVICE HIM TO WEAR THE BIPAP WITH NO SUCESS. PT STILL VERY CONFUSED. PLACED PATIENT BACK ON NON REBREATHER AT 15L. WILL CONTINUE TO MONITOR.
--- NOTE | 2020-05-25 23:56 | NUR ---
PT YELLS FOR HELP ABOUT EVERY 15 MINUTES, THEN WHEN YOU GET INTO THE ROOM HE IS NO DISTRESS AND CANT REMEMBER WHY HE WAS YELLING. STILL FIGHTING THE BIPAP AND NON REBREATHER FACE MASK.
[2020-05-26] VITALS: BP 145/85
[2020-05-26 07:15] LABS: BASO % 0.2 % (0.0-1.0); HEMATOCRIT 43.2 % (42.0-52.0); LYMPH # 0.5 10*3/uL (1.3-4.4); LYMPH % 7.3 % (27.0-41.0); MEAN CELL VOLUME 94.5 fl (80.0-94.0); MEAN CORPUSCULAR HGB 31.3 pg (27.0-31.0); MEAN CORPUSCULAR HGB CONC 33.1 g/dl (33.0-37.0); MONO # 0.2 10*3/uL (0.1-1.0); MONO % 3.1 % (3.0-9.0); NEUT # 5.5 10*3/uL (2.3-7.9); NEUT % 88.6 % (47.0-73.0); PLATELET COUNT AUTOMATED 263 10*3/uL (130-400); RED BLOOD COUNT 4.57 10*6/uL (4.50-5.90); RED CELL DISTRI WIDTH 14.2 % (0-14.5); WHITE BLOOD COUNT 6.2 10*3/uL (4.8-10.8)
--- NOTE | 2020-05-26 07:30 | NUR ---
PATIENT CALLING OUT. IN PATIENTS ROOM AT THIS TIME. PATIENT WANTED A DRINK OF WATER. PROVIDED PATIENT WITH SOME WATER AND REPOSITIONED AND PULLED UP IN BED FOR COMFORT. ASSESSMENT COMPLETE. PATIENT ON 15L NONREABREATHER AND DOES NOT WANT TO BE ON THE BIPAP AT THIS TIME. CALL LIGHT IN REACH. WILL MONITOR.
[2020-05-26 07:34] LABS: ALBUMIN 2.6 gm/dl (3.1-4.5); ALKALINE PHOSPHATASE 100 U/L (45-117); BUN 23 mg/dl (7-24); CHLORIDE 105 mmol/L (98-107); CREATININE 0.57 mg/dL (0.70-1.30); POTASSIUM 4.4 mmol/L (3.5-5.1); SGOT/AST 102 IU/L (3-35); SGPT/ALT 93 U/L (12-78); SODIUM 136 mmol/L (136-145); TOTAL PROTEIN 7.3 gm/dL (6.4-8.2)
[2020-05-26 07:51] LABS: ACT PARTIAL THROMBO TIME 35.2 SECONDS (20.0-32.1)
--- NOTE | 2020-05-26 07:51 | NUR ---
Shift chart check completed.
[2020-05-26 08:00] VITALS: BP 150/67
--- NOTE | 2020-05-26 09:09 | NUR ---
Patient is short term at [facility]. He is + COVID. recycle worker following for return.
--- NOTE | 2020-05-26 10:51 | NUR ---
PATIENT INCONTINENT OF BLADDER AT THIS TIME. COMPLETE BED CHANGE. PATIENT RESPOSITIONED AND PULLED UP IN BED FOR COMFORT. CALL LIGHT WITHIN REACH.
[2020-05-26 12:00] VITALS: BP 144/83
--- NOTE | 2020-05-26 12:30 | NUR ---
IV started left wrist with #22 protective cath after 1 attempts. Site prepped with Chloroprep. Sterile dressing applied. Patient tolerated procedure well. AQUILINO MAYERS
--- NOTE | 2020-05-26 13:54 | NUR ---
PATIENT COMPLAINS OF BUTT BEING ITCHY AND STATES HE NORMALLY RUBS A CREAM ON IT AT HOME BUT ISN'T SURE WHAT IT IS. NOTIFIED AND STATES SHE WILL PUT SOMETHING IN.
--- NOTE | 2020-05-26 14:05 | NUR ---
OT NOTE Occupational therapy order received and chart reviewed. Per discussion with patient's primary RN, patient is not appropriate for therapy at this time due to requiring a high O2 demand and fluctuating O2 stats. Will check back tomorrow for completion for an OT evaluation. Thank you. Tasneem Kate, OTR/L
--- NOTE | 2020-05-26 14:26 | NUR ---
PHYSICAL THERAPY Physical therapy evaluation attempted on this date. Per nursing, patient still remains on high supplemental oxygen demands with varying oxygen stats and at this time patient is not appropriate to be seen. Will return and check status of patient when appropriate for completion of evaluation.
--- NOTE | 2020-05-26 14:48 | NUR ---
HYDROCORTISONE CREAM WAS SENT FOR PATIENTS ITCHING. APPLIED TO THE AFFECTED AREAS AND PATIENT REPOSITIONED FOR COMFORT. PATIENT BACK ON HIS BIPAP POX 97%.
[2020-05-26 16:00] VITALS: BP 153/72
--- NOTE | 2020-05-26 16:00 | NUR ---
PATIENT SET OFF BED ALARM AND WAS ALMOST OUT OF BED. RIPPED HIS BIPAP OFF AND IS VERY AGITATED. DR. SUAREZ NOTIFIED ND GOING TO PUT SOMETHING IN.
--- NOTE | 2020-05-26 16:28 | NUR ---
ONE TIME DOSE OF ATIVAN 0.5 MG GIVEN AT THIS TIME PER ORDER. WILL ASSESS EFFECTIVENESS.
--- NOTE | 2020-05-26 17:28 | NUR ---
PATIENT SLEEPING. RESPS EASY AND REGULAR. NO S/S OF DISTRESS NOTED. ATIVAN EFFECTIVE. BIPAP ON POX 100%. CALL LIGHT IN REACH.
--- NOTE | 2020-05-26 17:49 | NUR ---
FAMILY CALLED IN AND I UPDATED THEM ON PATIENT. ALL QUESTIONS WERE ANSWERED.
[2020-05-26 20:00] VITALS: BP 135/59
--- NOTE | 2020-05-26 23:40 | NUR ---
Pt resting on BiPap. Alarms on and audible. FiO2 80%
[2020-05-27] VITALS: BP 153/97
--- NOTE | 2020-05-27 01:02 | NUR ---
PRN MORPHINE GIVEN AT THIS TIME FOR C/O GENERALZIED PAIN. WILL CONTINUE TO MONITOR.
[2020-05-27 06:18] LABS: BASO % 0.2 % (0.0-1.0); EOS % 0.2 % (1.0-4.0); HEMATOCRIT 42.2 % (42.0-52.0); LYMPH # 0.6 10*3/uL (1.3-4.4); LYMPH % 9.5 % (27.0-41.0); MEAN CELL VOLUME 94.6 fl (80.0-94.0); MEAN CORPUSCULAR HGB 31.8 pg (27.0-31.0); MEAN CORPUSCULAR HGB CONC 33.6 g/dl (33.0-37.0); MEAN PLATELET VOLUME 10.1 fl (9.6-12.3); MONO # 0.2 10*3/uL (0.1-1.0); MONO % 2.7 % (3.0-9.0); NEUT # 5.1 10*3/uL (2.3-7.9); NEUT % 86.4 % (47.0-73.0); PLATELET COUNT AUTOMATED 238 10*3/uL (130-400); RED BLOOD COUNT 4.46 10*6/uL (4.50-5.90); WHITE BLOOD COUNT 5.9 10*3/uL (4.8-10.8)
[2020-05-27 06:25] LABS: ALBUMIN 2.4 gm/dl (3.1-4.5); ALKALINE PHOSPHATASE 89 U/L (45-117); BUN 25 mg/dl (7-24); CHLORIDE 105 mmol/L (98-107); CPK 37 U/L (39-308); CREATININE 0.62 mg/dL (0.70-1.30); LDH 607 U/L (87-241); POTASSIUM 4.6 mmol/L (3.5-5.1); SGOT/AST 86 IU/L (3-35); SGPT/ALT 88 U/L (12-78); SODIUM 137 mmol/L (136-145); TOTAL PROTEIN 6.5 gm/dL (6.4-8.2)
--- NOTE | 2020-05-27 07:30 | NUR ---
PATIENT NOT VERY AROUSABLE TODAY. UNABLE TO ANSWER MY QUESTIONS. ASSESSMENT COMPLETE PATIENT CO TROUBLE BREATHING. ON 15L NONREBREATHER. POX 93%. WHEN PUT ON THE BIPAP PATIENT PULLS IT OFF. PULLED UP AND REPOSITIONED IN BED FOR COMFORT.
[2020-05-27 07:47] LABS: ABG BASE EXCESS 2.3 mmol/L (-2.0-2.0); ARTERIAL BLOOD GAS PH 7.444 (7.35-7.45)
[2020-05-27 08:00] VITALS: BP 152/73
--- NOTE | 2020-05-27 08:00 | NUR ---
PATIENT TOOK ONLY A FEW BITES OF APPLESAUCE FOR BREASKFAST THIS AM AND DID NOT WANT ANYTHING ELSE. INCONTINENT OF BLADDER AT THIS TIME. BED CHANGED AND PATIENT REPOSITIONED FOR COMFORT.
--- NOTE | 2020-05-27 08:03 | NUR ---
EMERGENCY DEPARTMENT COORDINATOR FAXED UPDATES TO [facility]. PATIENT REMAINS ON BIPAP 80% AND HFO2.
--- NOTE | 2020-05-27 11:30 | NUR ---
OT NOTE Occupational therapy order received. Per discussion with Dania Delgadillo to discharge OT orders as this time as he is not appropriate for therapy. Thank you for the referral. Tasneem Kate, OTR/L
--- NOTE | 2020-05-27 11:42 | NUR ---
PHYSICAL THERAPY Per discussion with Dania Delgadillo CNP, patient not appropriate for skilled PT services at this time. Discharge PT orders. Thank you. Kathleen Lopez,PT,DPT
[2020-05-27 12:00] VITALS: BP 145/80
--- NOTE | 2020-05-27 12:58 | NUR ---
Shift chart check completed.
--- NOTE | 2020-05-27 13:25 | NUR ---
Received order for hospice, patients vicente Narvaez requests referral for [facility]. Contacted [facility] faxed order and referral.
--- NOTE | 2020-05-27 13:45 | NUR ---
[facility] will accept this patient and will be sending A.J. to make assessment. Agency will be contacting vicente Brice;
--- NOTE | 2020-05-27 14:13 | NUR ---
YOEL CONTACTED THE FATHER OF THE [employer]. YOEL EXPLAINED THIS PATIENT IS A MEMBER OF THE [employer] AND WOULD NEED LAST RIGHTS DONE. HE STATED HE COULD BE CONTACTED AT [phone] DIRECTLY. YOEL SPOKE WITH DIOGENES ROLLE WHO STATED SHE WOULD HELP THE PATIENT MAKE THE PHONE CALL.
--- NOTE | 2020-05-27 14:30 | NUR ---
FATHER JAZZY CALLED TO TALK WITH PATIENT PER FAMIIES WISHES. HELD PHONE UP FOR PATIENT TO TALK WITH FATHER JAZZY AND PATIENT WAS HAPPY TO TALK WITH HIM.
--- NOTE | 2020-05-27 15:39 | NUR ---
FAMILY UPDATED ON PATIENT AND POC.
[2020-05-27 16:00] VITALS: BP 132/94
--- NOTE | 2020-05-27 17:21 | NUR ---
PATIENT BEING DISCHARGED AND READMITTED UNDER HOSPICE. AQUILINO MAYERS
== END 2020-05-27 17:34 | disposition hospice, home (50) | DRG 871 ==
LOC: ED 14:25 → EDHOLD 16:27 → 4E 05-22 19:00
PROVIDERS: Emergency Medicine; Internal Medicine; Internal Medicine Critical Care Medicine; Social Worker Clinical; ADMIT Family Medicine; ATTEND Family Medicine
PROC: 5A09357 Assistance with Respiratory Ventilation, Less than 24 Consecutive Hours, Continuous Positive Airway Pressure (ICD-10-PCS; principal; 2020-05-22)
PROC: XW033E5 Introduction of Remdesivir Anti-infective into Peripheral Vein, Percutaneous Approach, New Technology Group 5 (ICD-10-PCS; 2020-05-22)
PROC: 5A0935A Assistance with Respiratory Ventilation, Less than 24 Consecutive Hours, High Flow/Velocity Cannula (ICD-10-PCS; 2020-05-23)
PROC: 5A09357 Assistance with Respiratory Ventilation, Less than 24 Consecutive Hours, Continuous Positive Airway Pressure (ICD-10-PCS; 2020-05-24)
PROC: 5A09357 Assistance with Respiratory Ventilation, Less than 24 Consecutive Hours, Continuous Positive Airway Pressure (ICD-10-PCS; 2020-05-25)
PROC: 5A09357 Assistance with Respiratory Ventilation, Less than 24 Consecutive Hours, Continuous Positive Airway Pressure (ICD-10-PCS; 2020-05-26)
DX: A41.9 Sepsis, unspecified organism (principal); U07.1 COVID-19; J96.01 Acute respiratory failure with hypoxia; J12.89 Other viral pneumonia; E43 Unspecified severe protein-calorie malnutrition; D68.59 Other primary thrombophilia; J44.0 Chronic obstructive pulmonary disease with (acute) lower respiratory infection; R65.20 Severe sepsis without septic shock; J45.909 Unspecified asthma, uncomplicated; I45.10 Unspecified right bundle-branch block; E03.9 Hypothyroidism, unspecified; K59.09 Other constipation; F03.90 Unspecified dementia, unspecified severity, without behavioral disturbance, psychotic disturbance, mood disturbance, and anxiety; F32.9 Major depressive disorder, single episode, unspecified; I10 Essential (primary) hypertension; R73.9 Hyperglycemia, unspecified; D64.9 Anemia, unspecified; R74.01 Elevation of levels of liver transaminase levels; D72.810 Lymphocytopenia; R26.2 Difficulty in walking, not elsewhere classified; E83.41 Hypermagnesemia; Z66 Do not resuscitate; Z51.5 Encounter for palliative care; Z87.81 Personal history of (healed) traumatic fracture; Z68.25 Body mass index [BMI] 25.0-25.9, adult; Z79.899 Other long term (current) drug therapy

== ENCOUNTER 2020-05-27 17:37 | Inpatient (IN) | payer OTHER ==
[~2020-05-27] VITALS: Ht 170.2 cm; Wt 79.5 kg
--- NOTE | 2020-05-27 17:30 | NUR ---
Time: 1729 A 84 year old MALE admitted to under services of DR. ZHANNA ACKERMAN,MARY Draper. Chief complaint: SHORTNESS OF BREATH. AQUILINO MAYERS
[~2020-05-27 17:37] MED LIST changes: +KEPPRA500 MG PO
--- NOTE | 2020-05-27 19:30 | NUR ---
ASSUMED CARE OF PATIENT. PATIENT IS LETHARGIC WITH EASY AND REGULAR RESPERS. ASSESSMENT IS COMPLETE. BED IS LOW, LOCKED, ALARMED, AND CALL LIGHT IS WITHIN REACH. WILL CONTINUE TO MONITOR, SEE INTERVENTIONS
--- NOTE | 2020-05-27 19:39 | NUR ---
CONTACTED DR. CHAO IN REGARDS TO [employer] FOR ACTIVITIES OFFICER PUMP FOR KVO. NORMAL SALINE @30ML/HR ORDERED.
[2020-05-27 20:00] VITALS: BP 117/69
--- NOTE | 2020-05-27 20:36 | NUR ---
NORMAL SALINE KVO INITIATED, MORPHINE GAS TURBINE POWERPLANT MECHANIC INFUSING PER ORDER. WILL CONTINUE TO MONITOR.
--- NOTE | 2020-05-27 21:53 | NUR ---
IV discontinued. Site symptomatic. Pressure applied. Sterile dressing applied. IV started left antecubital with #22 angiocath after attempts. The IV site was prepped with Chloraprep. Heparin lock attached. IV solution 0.9NS infusing at KVO rate and Morphine BOAT MOTOR MECHANIC infusing at 5ml/hr. Sterile dressing applied. Patient tolerated precedure well. Procedure performed according to [facility] policy & procedure. CARRILLO LÓPEZ JORDAN A
--- NOTE | 2020-05-27 23:00 | NUR ---
IV started left antecubital with #22 angiocath. The IV site was prepped with Chloraprep. Heparin lock attached. IV solution Morphine DIRECTOR MEDICAL SURGICAL infusing at 5 cc/hr and 0.9NS infusing to KVO Sterile dressing applied. Patient tolerated precedure well. Procedure performed according to [facility] policy & procedure. CARRILLO LÓPEZ
[2020-05-28] VITALS: BP 116/69
--- NOTE | 2020-05-28 05:00 | NUR ---
PATIENT BED BATHED, SHAVED, LINENS CHANGED, AND TEETH BRUSHED. BED IS LOW, LOCKED, AND CALL LIGHT IS WITHIN REACH. WILL CONTINUE TO MONITOR.
[2020-05-28 08:00] VITALS: BP 87/50
[2020-05-28 12:00] VITALS: BP 101/49
[2020-05-28 16:00] VITALS: BP 65/41
[2020-05-28 20:00] VITALS: BP 75/45
--- NOTE | 2020-05-28 20:00 | NUR ---
PATIENT UNRESPONSIVE, RESTING COMFORTABLY. NO SIGNS OF DISTRESS. RESPERS 3-4 PER MINUTE, SWALLOW. 15L HIGH FLOW. BED IN LOWEST POSITION,BED ALARM ON. WILL CONTINUE TO MONITOR.
--- NOTE | 2020-05-28 23:34 | NUR ---
PATIENT MEDICATED WITH IV ATIVAN AT THIS TIME PER ORDERS. WILL CHECK EFFECTIVENESS.
[2020-05-29] VITALS: BP 71/43
--- NOTE | 2020-05-29 | NUR ---
PATIENT SEEMS TO BE MORE COMFORTABLE. ATIVAN EFFECTIVE. RESPERS 2-3 PER MINUTE. BED IN LOWEST POSITION,CALL LIGHT WITHIN REACH. BED ALARM ON. WILL CONTINUE TO MONITOR.
--- NOTE | 2020-05-29 01:20 | NUR ---
PATIENT RESTING COMFORTBALY. 15L HIGH FLOW ON. RESPERS SWALLOW 3-4 PER MINUTE. NO SIGNS OF DISTRESS. BED IN LOWEST POSITION,CALL LIGHT WITHIN REACH. WILL CONTINUE TO MONITOR.
--- NOTE | 2020-05-29 03:45 | NUR ---
PATIENT MEDICATED WITH IV ATIVAN PER ORDERS. WILL CHECK EFFECTIVENESS.
--- NOTE | 2020-05-29 04:30 | NUR ---
PATIENT RESTING COMFORTABLY. RESPERS 2-3 PER MIN. 15LITERS HIGH FLOW. PATIENTS PULSE OX 95%. NO SIGNS OF DISTRESS. BED IN LOWEST POSITION. BED ALARM ON WILL CONTINUE TO MONITOR.
--- NOTE | 2020-05-29 06:00 | NUR ---
PATIENT RESTING COMFORTABLY.
--- NOTE | 2020-05-29 08:49 | NUR ---
PT UNRESPONSIVE, RESTING COMFORTABLY. RESP 1-2 PER MIN. POX 100% 15L HF. NO ACUTE S/S DISTRESS NOTED AT THIS TIME. WILL MONITOR.
[2020-05-29 12:00] VITALS: BP 63/44
[2020-05-29 16:00] VITALS: BP 62/45
[2020-05-30] VITALS: BP 93/36
--- NOTE | 2020-05-30 01:30 | NUR ---
PATIENTS HR IN THE HIGH 110'S. RESPIRATIONS LABORED. MEDICATED AT THIS TIME WITH IV ATIVAN. WILL CONTINUE TO MONITOR.
--- NOTE | 2020-05-30 02:53 | NUR ---
PATIENT RESTING COMFORTABLY. PULSE OX 86% ON 15LHF, HR IN THE 110'S. WILL CONTINUE TO MONITOR.
--- NOTE | 2020-05-30 05:20 | NUR ---
NOTIFIED CARBOY FILLER AND DR. BOO THAT PATIENT AT THIS TIME.
--- NOTE | 2020-05-30 05:31 | NUR ---
CALLED PATIENTS DAUGHTER ISAIAH TO INFORM HER OF PATIENT PASSING. NO ANSWER. WILL RETRY.
--- NOTE | 2020-05-30 05:32 | NUR ---
NOTIFIED [facility] OF PATIENT PASSING. WAITING ON NURSE TACTICAL INTELLIGENCE OFFICER, DESI TO CALL BACK.
--- NOTE | 2020-05-30 05:40 | NUR ---
GOT [place] OF SON MIMI. PER MIMI THE FAMILY IS REQUESTING [facility]. NO FAMILY IS COMING IN TO SEE PATIENT AND CAN BE RELEASED TO HOME. FAMILY WANTING BELONGINGS TO BE TAKEN TO THE HOME. MAN STATED HE WOULD INFORM THE REST OF THE FAMILY OF PATINTS PASSING.
--- NOTE | 2020-05-30 05:48 | NUR ---
NOTIFIED ONE CALL OF PATIENTS PASSING. PER MAC FROM ONE CALL BODY OKAY TO BE RELEASED TO HOME.
--- NOTE | 2020-05-30 06:00 | NUR ---
[facility] NOTIFIED OF PATIENT PASSING. [facility] TO [facility] TAKE BODY TO HOME.
== END 2020-05-30 09:11 | disposition expired | DRG 871 ==
LOC: 4E 17:37
PROVIDERS: ADMIT Family Medicine; ATTEND Family Medicine
PROC: 5A0945A Assistance with Respiratory Ventilation, 24-96 Consecutive Hours, High Flow/Velocity Cannula (ICD-10-PCS; principal; 2020-05-27)
PROC: 5A0935A Assistance with Respiratory Ventilation, Less than 24 Consecutive Hours, High Flow/Velocity Cannula (ICD-10-PCS; 2020-05-30)
DX: A41.9 Sepsis, unspecified organism (principal); U07.1 COVID-19; J12.89 Other viral pneumonia; J96.01 Acute respiratory failure with hypoxia; E43 Unspecified severe protein-calorie malnutrition; J44.0 Chronic obstructive pulmonary disease with (acute) lower respiratory infection; R65.20 Severe sepsis without septic shock; Z51.5 Encounter for palliative care; F32.9 Major depressive disorder, single episode, unspecified; E03.9 Hypothyroidism, unspecified; I45.10 Unspecified right bundle-branch block; I10 Essential (primary) hypertension; R74.01 Elevation of levels of liver transaminase levels; R79.82 Elevated C-reactive protein (CRP); R79.89 Other specified abnormal findings of blood chemistry; D72.810 Lymphocytopenia; F03.90 Unspecified dementia, unspecified severity, without behavioral disturbance, psychotic disturbance, mood disturbance, and anxiety; M19.011 Primary osteoarthritis, right shoulder; Z68.25 Body mass index [BMI] 25.0-25.9, adult